=== PATIENT | female | born 1965 | race Caucasian/White ===

== ENCOUNTER → 2017-12-23 | Outpatient (CLI) | payer OTHER ==
[~2017-12-23] MED LIST: ATOM60CA PO; BUTA-56 PO; CYCL10TA6 PO; RIZA10TA18 PO; TAMO20TA9 PO; [UNRECOGNIZED DRUG - OTHER] PO; buspar PO; lexapro PO
--- NOTE | 2017-12-23 09:08 | DIAGNOSTIC IMAGING REPORT ---
ABDOMINAL ULTRASOUND, RIGHT UPPER QUADRANT HISTORY: Right upper quadrant pain.. COMPARISON: None. FINDINGS: Pancreas: The pancreas demonstrates a normal echotexture. Liver: Unremarkable. Gallbladder: No gallbladder wall thickening. No gallstones. CBD: 4 mm. Right kidney: No hydronephrosis. IMPRESSION: No significant abnormality identified within the right upper quadrant. Electronically signed by: Dakota Myers M.D. 12/23/2017 9:06 AM Dictated Date/Time: 12/23/2017 9:05 AM
== END | disposition home or self-care (01) ==
LOC: C.ULTR 08:31
PROVIDERS: ATTEND Internal Medicine Hematology & Oncology
DX: C50.912 Malignant neoplasm of unspecified site of left female breast (principal); R10.11 Right upper quadrant pain

== ENCOUNTER → 2018-06-30 | Outpatient (CLI) | payer OTHER ==
[2018-06-30 17:27] LABS: BASO % 0.2 %; BASO ABS # 0.01 K/uL (0-0.2); EOS % 3.2 %; EOS ABS # 0.14 K/uL (0-0.5); HEMATOCRIT 39.3 % (37-47); HEMOGLOBIN 13.7 g/dL (12.0-16.0); LYMPH % 40.3 %; LYMPH ABS # 1.77 K/uL (1.2-3.4); MEAN CELL VOLUME 94.5 fL (80-100); MEAN CORPUSCULAR HEMOGLOBIN 32.9 pg (25-34); MEAN CORPUSCULAR HGB CONC 34.9 g/dl (32-36); MEAN PLATELET VOLUME 9.6 fL (7.4-10.4); MONO % 9.6 %; MONO ABS # 0.42 K/uL (0.11-0.59); NEUT % 46.7 %; NEUT ABS # 2.05 K/uL (1.4-6.5); PLATELET COUNT 223 K/uL (130-400); RED CELL DISTRIBUTION WIDTH CV 12.5 % (11.5-14.5); RED CELL DISTRIBUTION WIDTH SD 42.8 fL (36.4-46.3); WHITE BLOOD COUNT 4.39 K/uL (4.8-10.8)
[2018-06-30 17:58] LABS: ALBUMIN 4.2 gm/dl (3.4-5.0); ALKALINE PHOSPHATASE 72 U/L (45-117); ALT/SGPT 31 U/L (12-78); AST/SGOT 23 U/L (15-37); BLOOD UREA NITROGEN 17 mg/dl (7-18); CALCIUM 9.1 mg/dl (8.5-10.1); CARBON DIOXIDE 25 mmol/L (21-32); CHOLESTEROL 223 mg/dl (0-200); CREATININE 0.97 mg/dl (0.60-1.20); GLUCOSE 99 mg/dl (70-99); LDL CHOLESTEROL CALCULATED 143 mg/dl; POTASSIUM 3.8 mmol/L (3.5-5.1); SODIUM 137 mmol/L (136-145); TOTAL PROTEIN 7.2 gm/dl (6.4-8.2)
[2018-07-03 14:31] LABS: CA 27.29** TC 20123E 35 U/ML (<38); CA15-3 BREAST ANTIGEN 5819 24 U/mL (<32)
== END | disposition home or self-care (01) ==
LOC: C.LABBFT 12:39
PROVIDERS: ATTEND Nurse Practitioner
DX: C50.912 Malignant neoplasm of unspecified site of left female breast (principal); E03.9 Hypothyroidism, unspecified; I10 Essential (primary) hypertension

== ENCOUNTER → 2018-07-20 | Outpatient (CLI) | payer OTHER ==
[2018-07-20 17:47] LABS: BLOOD UREA NITROGEN 17 mg/dl (7-18); CALCIUM 10.2 mg/dl (8.5-10.1); CARBON DIOXIDE 30 mmol/L (21-32); CREATININE 1.01 mg/dl (0.60-1.20); GLUCOSE 94 mg/dl (70-99); POTASSIUM 3.8 mmol/L (3.5-5.1); SODIUM 138 mmol/L (136-145)
== END | disposition home or self-care (01) ==
LOC: C.LABBFT 13:47
PROVIDERS: ATTEND Nurse Practitioner
DX: I10 Essential (primary) hypertension (principal); F41.9 Anxiety disorder, unspecified

== ENCOUNTER 2022-06-11 23:02 | Inpatient (IN) ==
[2022-06-11] MEDS ORDERED: NITROGLYCERIN SL 0.4 MG/TAB TAB SL STA (23:19)
--- NOTE | 2022-06-11 23:31 | Emergency Department Note ---
Impression & Plan Acute hyponatremia, Hypokalemia, Midsternal chest [facility] NAME: JENNIFER AGUILLON AGE: 56 SEX: F ARRIVES VIA: Ambulance INFORMANT: Patient ED PROVIDER(S): Mellisa Anders DO CHIEF COMPLAINT: Chest pain; nausea and vomiting PLAN: Disposition: Admit to the [facility] Condition: Guarded MEDICAL DECISION MAKING: This is a 56-year-old female patient who presents to the emergency department with nausea and vomiting earlier today and then suddenly developed substernal chest pain this evening. The patient had a normal-appearing EKG and negative troponin. However, she had a very low sodium and potassium as well as chloride. We began to replace her sodium and potassium. The patient has been vomiting since 1:00 and then developed chest pain 2 hours ago. The nausea and vomiting seems to be under control after receiving IV Zofran. [facility] and [facility] will evaluate for further management. Triage Nursing notes reviewed and agree with them. Prior medical records reviewed Vital Signs: reviewed and unremarkable Differential diagnosis: Pancreatitis, cholecystitis, electrolyte abnormality, hyperglycemia, hypoglycemia GERD, NSTEMI, STEMI ER treatment provided: SL nitro IV normal saline solution IV potassium IV Dilaudid x2 Diagnostics interpreted by me: ECG: Normal sinus rhythm at a rate of 87 with a first-degree AV block. There was no ST segment elevation or signs of ischemia. The QT was prolonged at 490 m s. There was no ectopy. Cardiac Monitoring: Normal sinus rhythm at 84 Laboratory studies: See below Imaging studies: As per my interpretation Chest x-ray: Narrow mediastinum; no acute pulmonary pathology or evidence of co nsolidation. CT chest with contrast-as per stat rad Minimal curvilinear atelectasis at the bases. No focal consolidation. No pleural effusion or pneumothorax. The thoracic aorta is normal in caliber without aneurysm or dissection. Cardiac chambers are unremarkable. No pericardial effusion. No significant mediastinal or hilar adenopathy. Incidental hiatal hernia. No acute osseous abnormality. Overlying postoperative changes in the breast tissue consistent with bilateral mastectomy with subsequent reconstruction. No significant overlying acute soft tissue abnormality. HPI: 56/F arrives for evaluation of chest pain. Patient was in her usual state of health throughout the morning. Around 1 PM this afternoon, the patient developed significant nausea and vomiting. Around 2 hours ago, the patient developed substernal chest discomfort. She thought that it was indigestion. The symptoms seem to worsen and she called EMS. They administered aspirin, Zofran and sublingual nitroglycerin. She has since developed a headache. ROS: See above HPI for pertinent positives & negatives. A total of 10 systems reviewed and were otherwise negative. 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 Pupils are equal, round, and reactive to light. Extraocular eye muscles are intact, and sclera are anicteric. Nose - moist nasal mucosa without discharge. Mouth - moist buccal mucosa. Oropharynx is nonerythematous and there is no tonsillar exudate or edema noted. Neck: Supple; no cervical lymphadenopathy or thyromegaly Heart: Regular rate and rhythm. There is a normal S1 and S2 with no murmurs, clicks, or gallops appreciated. Lungs: Clear to auscultation bilaterally with no wheezes, rales, or rhonchi. Abdomen: Soft, completely nontender, nondistended, with good bowel sounds. There are no palpable pulsatile masses or hepatosplenomegaly. There is no guarding, rigidity, or rebound noted. Extremities: No evidence of cyanosis, clubbing, or edema. There are easily palpable peripheral pulses. Skin: warm and dry with good turgor and no rashes. ED COURSE: Times/Reassessments: 2305: Patient was evaluated in room C9. A complete history and physical was performed. Laboratory studies were drawn as above. An order was placed for continuous cardiac monitoring. The patient was in a normal sinus rhythm. A twelve-lead EKG was obtained as described above. The patient was given a sublingual nitroglycerin. Patient did not have much relief of the chest discomfort. She was noted to be significantly low sodium and potassium. She was started on IV normal saline solution and a K rider. The patient was given a dose of IV Dilaudid for the chest discomfort. This did give her some relief. I reviewed all of the laboratory studies with the patient and her . She continued complaining of pain in the chest. She was given another dose of IV Dilaudid. I discussed the case with the [facility] and they will evaluate for further management. Mellisa Anders DO Past Med/Surg History Medical History (Updated 06/13/22 @ 16:34 by Mellisa Anders DO) Anxiety Brachial plexus injury, left Breast cancer Carpal tunnel syndrome, bilateral Cervical radiculopathy Depression Hypertension Hypothyroidism Intercostal neuropathy Migraine Post-mastectomy pain syndrome Surgical History H/O bilateral mastectomy H/O left knee surgery H/O: hysterectomy Hx of tonsillectomy Previous section Family History Mother Depression Cancer Hypertension Father Hypertension Hypotension Sister Anxiety Social History Smoking Status: Never smoker Hx Alcohol Use: Yes Alcohol type: wine Hx Substance Use: No Preferred Language: Hebrew Visual Impairment: No Limitations Hearing Ability: Normal Beliefs That Will Affect Care: None marital status: Current Living Situation: Spouse current occupational status: employed 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, 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 Feels Safe at Home: Yes Assistive Devices: None Allergies Allergies Allergy/AdvReac Type Severity Reaction Status Date / Time amoxicillin Allergy Mild back pain, Verified 06/12/22 01:51 nausea, diarrhea clindamycin Allergy hives Verified 06/12/22 01:51 lisinopril Allergy heart Verified 06/12/22 01:51 palpatations azithromycin AdvReac Intermediate vomiting Verified 06/12/22 01:51 Chloraprep Allergy Unknown Hives Uncoded 06/12/22 01:51 Home Meds Home Medications Medication Instructions Recorded Confirmed clonazepam 1 mg tablet (Klonopin) 1 mg PO BID PRN Anxiety 06/28/19 06/12/22 letrozole 2.5 mg tablet (Femara) 2.5 mg PO DAILY 06/28/19 06/12/22 [id number] 50 1 cap PO Q4H PRN Migraine Headache 07/24/19 06/12/22 mg-325 mg-40 mg capsule amlodipine 5 mg tablet 5 mg PO DAILY 08/09/19 06/12/22 rimegepant 75 mg disintegrating 75 mg PO ONCE PRN migraine headache 04/04/22 06/12/22 tablet (Nurtec ODT) vortioxetine 20 mg tablet 20 mg PO DAILY 04/04/22 06/12/22 (Trintellix) hydroxyzine pamoate 25 mg capsule 25 mg PO HS 04/15/22 06/12/22 nabumetone 750 mg tablet 750 mg PO BID 04/15/22 06/12/22 Previous Rx's Medication Instructions Recorded hydrochlorothiazide 25 mg tablet 25 mg PO DAILY #90 tabs 07/29/19 levothyroxine 150 mcg tablet 150 mcg PO DAILY #90 tabs 08/26/19 nebivolol 20 mg tablet (Bystolic) 20 mg PO DAILY #30 tabs 07/25/20 duloxetine 30 mg capsule,delayed 30 mg PO HS #90 caps 10/12/21 release (Cymbalta) acetaminophen 300 mg-codeine 30 mg 1 tab PO Q8H PRN pain #30 tabs 04/15/22 tablet oxcarbazepine 300 mg tablet 300 mg PO BID #60 tabs 04/17/22 duloxetine 60 mg capsule,delayed 60 mg PO QAM 30 days #30 caps 04/24/22 release (Cymbalta) Results & Data (ED) Vital Signs Vital Signs - 24 hr 06/11/22 23:07 06/11/22 23:20 06/11/22 23:26 Temperature 36.7 C Temperature Source Oral Oral Pulse Rate 83 Pulse Rate [Finger] Pulse Rhythm [Finger] Pulse Strength [Finger] Respiratory Rate 16 Respiratory Effort / Characteristics Non-Labored Respiratory Depth Normal Respiratory Pattern Regular Blood Pressure 139/86 Blood Pressure [Right Arm] Blood Pressure Mean 103 Blood Pressure Mean [Right Arm] Blood Pressure Position Lying Blood Pressure Position [Right Arm] Pulse Oximetry 97 Oxygen Delivery Method Room Air Room Air Sepsis Recent Fever Within 48 Hours No Sepsis New/Unexplained Change in Mental Status N/A Sepsis Action Taken by Nursing No Action Required 06/11/22 23:26 06/11/22 23:30 06/11/22 23:41 Temperature Temperature Source Pulse Rate 77 Pulse Rate [Finger] Pulse Rhythm [Finger] Pulse Strength [Finger] Respiratory Rate 12 Respiratory Effort / Characteristics Respiratory Depth Respiratory Pattern Blood Pressure 134/82 Blood Pressure [Right Arm] Blood Pressure Mean 99 Blood Pressure Mean [Right Arm] Blood Pressure Position Blood Pressure Position [Right Arm] Pulse Oximetry 94 97 Oxygen Delivery Method Room Air Sepsis Recent Fever Within 48 Hours Sepsis New/Unexplained Change in Mental Status Sepsis Action Taken by Nursing 06/11/22 23:41 06/12/22 00:00 06/12/22 01:20 Temperature Temperature Source Pulse Rate 86 Pulse Rate [Finger] 76 Pulse Rhythm [Finger] Regular Pulse Strength [Finger] Normal Respiratory Rate 17 20 Respiratory Effort / Characteristics Non-Labored Spontaneous Respiratory Depth Normal Respiratory Pattern Blood Pressure 137/80 Blood Pressure [Right Arm] 119/67 Blood Pressure Mean 99 Blood Pressure Mean [Right Arm] 84 Blood Pressure Position Blood Pressure Position [Right Arm] Lying Pulse Oximetry 94 97 Oxygen Delivery Method Room Air Sepsis Recent Fever Within 48 Hours Sepsis New/Unexplained Change in Mental Status Sepsis Action Taken by Nursing 06/12/22 00:30 06/12/22 00:30 06/12/22 01:00 Temperature Temperature Source Pulse Rate 81 72 Pulse Rate [Finger] Pulse Rhythm [Finger] Pulse Strength [Finger] Respiratory Rate 16 28 H Respiratory Effort / Characteristics Respiratory Depth Respiratory Pattern Blood Pressure 130/76 Blood Pressure [Right Arm] Blood Pressure Mean 94 Blood Pressure Mean [Right Arm] Blood Pressure Position Blood Pressure Position [Right Arm] Pulse Oximetry 98 92 Oxygen Delivery Method Sepsis Recent Fever Within 48 Hours Sepsis New/Unexplained Change in Mental Status Sepsis Action Taken by Nursing 06/12/22 01:00 06/12/22 01:34 06/12/22 03:00 Temperature Temperature Source Pulse Rate Pulse Rate [Finger] 62 Pulse Rhythm [Finger] Pulse Strength [Finger] Respiratory Rate 14 Respiratory Effort / Characteristics Non-Labored Respiratory Depth Normal Respiratory Pattern Regular Blood Pressure 119/67 Blood Pressure [Right Arm] 103/56 L Blood Pressure Mean 84 Blood Pressure Mean [Right Arm] 71 Blood Pressure Position Blood Pressure Position [Right Arm] Lying Pulse Oximetry 96 97 Oxygen Delivery Method Room Air Sepsis Recent Fever Within 48 Hours Sepsis New/Unexplained Change in Mental Status Sepsis Action Taken by Nursing 06/12/22 04:00 06/12/22 05:00 Temperature Temperature Source Pulse Rate Pulse Rate [Finger] 60 65 Pulse Rhythm [Finger] Pulse Strength [Finger] Respiratory Rate 10 L 14 Respiratory Effort / Characteristics Non-Labored Spontaneous Non-Labored Respiratory Depth Normal Normal Respiratory Pattern Regular Regular Blood Pressure Blood Pressure [Right Arm] 94/51 L 110/58 L Blood Pressure Mean Blood Pressure Mean [Right Arm] 65 75 Blood Pressure Position Blood Pressure Position [Right Arm] Left Lateral Left Lateral Pulse Oximetry 96 97 Oxygen Delivery Method Room Air Room Air Sepsis Recent Fever Within 48 Hours Sepsis New/Unexplained Change in Mental Status Sepsis Action Taken by Nursing Laboratory Data Result diagrams: 06/11/22 23:17 06/13/22 12:02 Lab Results 06/11/22 06/11/22 06/11/22 Range/Units 23:17 23:17 23:17 WBC 7.99 (4.8-10.8) K/ul RBC 4.56 (3.93-5.22) M/uL Hgb 13.8 (12.0-16.0) g/dl Hct 38.5 (34.1-44.9) % MCV 84.4 (80.0-100.0) fL MCH 30.3 (25.0-34.0) pg MCHC 35.8 (32.0-36.0) g/dL RDW Std Deviation 40.1 (36.4-46.3) fL RDW Coeff of Gonzalo 13.0 (11.5-14.5) % Plt Count 358 (130-400) K/uL MPV 8.5 L (9.4-12.3) fL Immature Gran % (Auto) 0.3 % Neut % (Auto) 47.0 % Lymph % (Auto) 37.8 % [place] % (Auto) 12.9 % Eos % (Auto) 1.4 % Baso % (Auto) 0.6 % Neut # (Auto) 3.76 (1.4-6.5) K/uL Lymph # (Auto) 3.02 (1.2-3.4) K/uL [place] # (Auto) 1.03 H (0.24-0.82) K/uL Eos # (Auto) 0.11 (0-0.50) K/uL Baso # (Auto) 0.05 (0-0.2) K/uL Immature Gran # (Auto) 0.02 (0.00-0.02) K/uL Sodium 119 L* (136-145) mmol/L Potassium 2.5 L* (3.5-5.1) mmol/L Chloride 81 L (98-107) mmol/L Carbon Dioxide 26 (21-32) mmol/L Anion Gap 12 H (3-11) BUN 12 (6-23) mg/dl Creatinine 0.61 (0.6-1.2) mg/dl Est Cr Clr Drug Dosing 105.8 ml/min Est GFR ( Amer) 118.3 ml/min Est GFR (Non-Af Amer) 102.1 ml/min BUN/Creatinine Ratio 19.7 (10-20) Glucose 125 H (70-99(Fasting)) mg/dl Osmolality 251 L (280-300) mOsm/kg Calcium 10.0 (8.5-10.1) mg/dl Total Bilirubin 1.3 H (0.2-1.0) mg/dl AST 30 (13-39) U/L ALT 22 (7-52) U/L Alkaline Phosphatase 101 (34-104) U/L Troponin I High Sens 3.9 (0-14) pg/ml Total Protein 7.7 (6.0-8.3) gm/dl Albumin 5.0 (3.4-5.0) gm/dl Globulin 2.7 (2.5-4.0) gm/dl Albumin/Globulin Ratio 1.9 (0.9-2) Lipase 9 L (11-82) U/L TSH (0.300-4.500) uIu/ml Urine Osmolality (500-800) mOsm/kg Ur Random Sodium mmol/L Urine Opiates Screen (Neg) Ur Methadone, Qual (Neg) Urine Barbiturates (Neg) Ur Phencyclidine (PCP) (Neg) U Amphetamin/Meth Scrn (Neg) MDMA (Ecstasy) Screen (Neg) U Benzodiazepines Scrn (Neg) Ur Cocaine Metabolite (Neg) U Marijuana (THC) Screen (Neg) SARS-CoV-2, RNA, NAAT (NEGATIVE) 06/11/22 06/12/22 06/12/22 Range/Units 23:17 01:14 01:36 WBC (4.8-10.8) K/ul RBC (3.93-5.22) M/uL Hgb (12.0-16.0) g/dl Hct (34.1-44.9) % MCV (80.0-100.0) fL MCH (25.0-34.0) pg MCHC (32.0-36.0) g/dL RDW Std Deviation (36.4-46.3) fL RDW Coeff of Gonzalo (11.5-14.5) % Plt Count (130-400) K/uL MPV (9.4-12.3) fL Immature Gran % (Auto) % Neut % (Auto) % Lymph % (Auto) % [place] % (Auto) % Eos % (Auto) % Baso % (Auto) % Neut # (Auto) (1.4-6.5) K/uL Lymph # (Auto) (1.2-3.4) K/uL [place] # (Auto) (0.24-0.82) K/uL Eos # (Auto) (0-0.50) K/uL Baso # (Auto) (0-0.2) K/uL Immature Gran # (Auto) (0.00-0.02) K/uL Sodium (136-145) mmol/L Potassium (3.5-5.1) mmol/L Chloride (98-107) mmol/L Carbon Dioxide (21-32) mmol/L Anion Gap (3-11) BUN (6-23) mg/dl Creatinine (0.6-1.2) mg/dl Est Cr Clr Drug Dosing ml/min Est GFR ( Amer) ml/min Est GFR (Non-Af Amer) ml/min BUN/Creatinine Ratio (10-20) Glucose (70-99(Fasting)) mg/dl Osmolality (280-300) mOsm/kg Calcium (8.5-10.1) mg/dl Total Bilirubin (0.2-1.0) mg/dl AST (13-39) U/L ALT (7-52) U/L Alkaline Phosphatase (34-104) U/L Troponin I High Sens (0-14) pg/ml Total Protein (6.0-8.3) gm/dl Albumin (3.4-5.0) gm/dl Globulin (2.5-4.0) gm/dl Albumin/Globulin Ratio (0.9-2) Lipase (11-82) U/L TSH 0.347 (0.300-4.500) uIu/ml Urine Osmolality 320 L (500-800) mOsm/kg Ur Random Sodium mmol/L Urine Opiates Screen (Neg) Ur Methadone, Qual (Neg) Urine Barbiturates (Neg) Ur Phencyclidine (PCP) (Neg) U Amphetamin/Meth Scrn (Neg) MDMA (Ecstasy) Screen (Neg) U Benzodiazepines Scrn (Neg) Ur Cocaine Metabolite (Neg) U Marijuana (THC) Screen (Neg) SARS-CoV-2, RNA, NAAT NEGATIVE (NEGATIVE) 06/12/22 06/12/22 Range/Units 01:36 01:36 WBC (4.8-10.8) K/ul RBC (3.93-5.22) M/uL Hgb (12.0-16.0) g/dl Hct (34.1-44.9) % MCV (80.0-100.0) fL MCH (25.0-34.0) pg MCHC (32.0-36.0) g/dL RDW Std Deviation (36.4-46.3) fL RDW Coeff of Gonzalo (11.5-14.5) % Plt Count (130-400) K/uL MPV (9.4-12.3) fL Immature Gran % (Auto) % Neut % (Auto) % Lymph % (Auto) % [place] % (Auto) % Eos % (Auto) % Baso % (Auto) % Neut # (Auto) (1.4-6.5) K/uL Lymph # (Auto) (1.2-3.4) K/uL [place] # (Auto) (0.24-0.82) K/uL Eos # (Auto) (0-0.50) K/uL Baso # (Auto) (0-0.2) K/uL Immature Gran # (Auto) (0.00-0.02) K/uL Sodium (136-145) mmol/L Potassium (3.5-5.1) mmol/L Chloride (98-107) mmol/L Carbon Dioxide (21-32) mmol/L Anion Gap (3-11) BUN (6-23) mg/dl Creatinine (0.6-1.2) mg/dl Est Cr Clr Drug Dosing ml/min Est GFR ( Amer) ml/min Est GFR (Non-Af Amer) ml/min BUN/Creatinine Ratio (10-20) Glucose (70-99(Fasting)) mg/dl Osmolality (280-300) mOsm/kg Calcium (8.5-10.1) mg/dl Total Bilirubin (0.2-1.0) mg/dl AST (13-39) U/L ALT (7-52) U/L Alkaline Phosphatase (34-104) U/L Troponin I High Sens (0-14) pg/ml Total Protein (6.0-8.3) gm/dl Albumin (3.4-5.0) gm/dl Globulin (2.5-4.0) gm/dl Albumin/Globulin Ratio (0.9-2) Lipase (11-82) U/L TSH (0.300-4.500) uIu/ml Urine Osmolality (500-800) mOsm/kg Ur Random Sodium 100 mmol/L Urine Opiates Screen Pos H (Neg) Ur Methadone, Qual Neg (Neg) Urine Barbiturates Neg (Neg) Ur Phencyclidine (PCP) Neg (Neg) U Amphetamin/Meth Scrn Neg (Neg) MDMA (Ecstasy) Screen Neg (Neg) U Benzodiazepines Scrn Neg (Neg) Ur Cocaine Metabolite Neg (Neg) U Marijuana (THC) Screen Neg (Neg) SARS-CoV-2, RNA, NAAT (NEGATIVE) Administered Medications Amlodipine Besylate (Amlodipine Besylate 5 Mg Tab) 5 mg PO DAILY ROXANNE Stop: 07/12/22 08:59 Last Admin: 06/13/22 08:31 Dose: 5 mg Documented By: Admin: 06/12/22 08:08 Dose: 5 mg Documented By: DELIA Hydroxyzine HCl (Hydroxyzine Hcl 25 Mg Tab) 25 mg PO HS RXOANNE Stop: 07/12/22 20:59 Last Admin: 06/12/22 20:42 Dose: 25 mg Documented By: DELIA Letrozole (Letrozole 2.5 Mg Tab) 2.5 mg PO DAILY ROXANNE Stop: 07/12/22 08:59 Last Admin: 06/13/22 08:31 Dose: 2.5 mg Documented By: MILLIE Co-signed By: MIGNON Admin: 06/12/22 08:08 Dose: 2.5 mg Documented By: DELIA Co-signed By: TYLER Levothyroxine Sodium (Levothyroxine Sodium 150 Mcg Tablet) 150 mcg PO DAILY ROXANNE Stop: 07/12/22 06:29 Last Admin: 06/13/22 05:12 Dose: 150 mcg Documented By: Admin: 06/12/22 08:08 Dose: 150 mcg Documented By: DELIA Miscellaneous (Order Awaiting Action: Nebivolol [Bystolic] 20 Mg Tablet) 1 each N/A QS ROXANNE Stop: 07/12/22 07:59 Last Admin: 06/13/22 08:17 Dose: Not Given Documented By: Admin: 06/13/22 00:00 Dose: Not Given Documented By: Admin: 06/12/22 15:51 Dose: Not Given Documented By: Admin: 06/12/22 08:08 Dose: Not Given Documented By: DELIA Ondansetron HCl (Ondansetron Inj 2 Mg/Ml 2 Ml Vial) 4 mg IV Q6H PRN PRN Reason: Nausea Stop: 07/12/22 06:22 Last Admin: 06/12/22 07:51 Dose: 4 mg Documented By: DELIA Discontinued Medications Fentanyl Citrate (Fentanyl Citrate 100 Mcg/2 Ml Vial) 50 mcg IV NOW STA Stop: 06/11/22 23:45 Last Admin: 06/11/22 23:59 Dose: 50 mcg Documented By: BOYD Hydromorphone HCl (Hydromorphone Inj 0.5 Mg/0.5 Ml Syr) 0.5 mg IV NOW STA Stop: 06/12/22 00:24 Last Admin: 06/12/22 00:28 Dose: 0.5 mg Documented By: BOYD Hydromorphone HCl (Hydromorphone Inj 0.5 Mg/0.5 Ml Syr) 0.5 mg IV NOW STA Stop: 06/12/22 00:59 Last Admin: 06/12/22 01:19 Dose: 0.5 mg Documented By: CATHY Sodium Chloride (Nss 1000ml) 1,000 mls @ 999 mls/hr IV .Q1H1M ONE Stop: 06/12/22 01:13 Last Infusion: 06/12/22 02:00 Dose: 0 mls/hr Documented By: Admin: 06/12/22 00:23 Dose: 999 mls/hr Documented By: BOYD Potassium Chloride (K Zach / Wtr) 10 meq in 100 mls @ 100 mls/hr IV ONE ONE; Protocol Stop: 06/12/22 01:12 Last Infusion: 06/12/22 02:00 Dose: 0 mls/hr Documented By: Admin: 06/12/22 00:48 Dose: 100 mls/hr Documented By: BOYD Prochlorperazine (Compazine) 1 mls @ 1 mls/min IV ONE ONE Stop: 06/12/22 00:16 Last Admin: 06/12/22 00:23 Dose: 1 mls/min Documented By: BOYD Sodium Chloride (Hypertonic Saline 3%) 100 mls @ 600 mls/hr IV .Q10M ONE Stop: 06/12/22 01:38 Last Infusion: 06/12/22 02:01 Dose: 0 mls/hr Documented By: BOYD Co-signed By: GE Admin: 06/12/22 01:51 Dose: 600 mls/hr Documented By: BOYD Co-signed By: CATHY Sodium Chloride (Hypertonic Saline 3%) 100 mls @ 600 mls/hr IV .Q10M ONE Stop: 06/12/22 06:10 Last Infusion: 06/12/22 06:26 Dose: 0 mls/hr Documented By: BOYD Co-signed By: EMERY Admin: 06/12/22 06:16 Dose: 600 mls/hr Documented By: BOYD Co-signed By: EMERY Desmopressin Acetate 2 mcg/ (Sodium Chloride) 50.5 mls @ 100 mls/hr IV NOW STA Stop: 06/12/22 13:08 Last Infusion: 06/12/22 14:12 Dose: 0 mls/hr Documented By: Admin: 06/12/22 13:41 Dose: 100 mls/hr Documented By: DELIA Desmopressin Acetate 4 mcg/ (Sodium Chloride) 51 mls @ 100 mls/hr IV NOW STA Stop: 06/12/22 17:43 Last Infusion: 06/12/22 18:15 Dose: 0 mls/hr Documented By: Admin: 06/12/22 17:44 Dose: 100 mls/hr Documented By: DELIA Desmopressin Acetate 4 mcg/ (Syringe) 10 mls @ 5 mls/min IV NOW STA Stop: 06/12/22 22:46 Last Admin: 06/12/22 23:22 Dose: 5 mls/min Documented By: ESCOBAR Desmopressin Acetate 2 mcg/ (Syringe) 10 mls @ 5 mls/min IV NOW STA Stop: 06/13/22 05:28 Last Admin: 06/13/22 05:40 Dose: 5 mls/min Documented By: ESCOBAR Ioversol (Optiray 320 100ml) 100 ml IV ONCE ONE Stop: 06/12/22 00:54 Last Admin: 06/12/22 00:54 Dose: 93 ml Documented By: LYUDMILA Nitroglycerin (Nitroglycerin Sl 0.4 Mg/Tab Tab) 0.4 mg SL NOW STA Stop: 06/11/22 23:20 Last Admin: 06/11/22 23:31 Dose: 0.4 mg Documented By: BOYD Ondansetron HCl (Ondansetron Inj 2 Mg/Ml 2 Ml Vial) 4 mg IV NOW STA Stop: 06/11/22 23:35 Last Admin: 06/11/22 23:41 Dose: 4 mg Documented By: BOYD Potassium Chloride (Potassium Chloride Crtab 20 Meq Tabcr) 60 meq PO NOW STA Stop: 06/12/22 01:32 Last Admin: 06/12/22 01:50 Dose: 60 meq Documented By: BOYD Discharge Plan Visit Data Chief Complaint: Chest Pain ED Provider: Mellisa Anders Discharge Problem: Acute hyponatremia, Hypokalemia, Midsternal chest pain Patient Disposition: Admitted As Inpatient Discharge Instructions Interventions: ED Discharge Assessment Last Done: 06/12/22 06:19
[2022-06-11 23:33] LABS: Basophils # (auto) 0.05 K/uL (0-0.2); Basophils % (auto) 0.6 %; Eosinophils # (auto) 0.11 K/uL (0-0.50); Eosinophils % (auto) 1.4 %; Hematocrit (blood only) 38.5 % (34.1-44.9); Hemoglobin 13.8 g/dl (12.0-16.0); Immature Granulocytes # (auto) 0.02 K/uL (0.00-0.02); Immature Granulocytes % (auto) 0.3 %; Lymphocytes # (auto) 3.02 K/uL (1.2-3.4); Lymphocytes % (auto) 37.8 %; Mean Corpuscular Hemoglobin 30.3 pg (25.0-34.0); Mean Corpuscular Hgb Conc 35.8 g/dL (32.0-36.0); Mean Corpuscular Volume 84.4 fL (80.0-100.0); Mean Platelet Volume 8.5 fL (9.4-12.3); Monocytes # (auto) 1.03 K/uL (0.24-0.82); Monocytes % (auto) 12.9 %; Neutrophils # (auto) 3.76 K/uL (1.4-6.5); Platelet Count 358 K/uL (130-400); RDW Standard Deviation 40.1 fL (36.4-46.3); Red Blood Count 4.56 M/uL (3.93-5.22); White Blood Count 7.99 K/ul (4.8-10.8)
[2022-06-11] MEDS ORDERED: ONDANSETRON INJ 2 MG/ML 2 ML VIAL IV STA (23:34)
[2022-06-11] MEDS ORDERED: fentaNYL citrate 100 MCG/2 ML VIAL IV STA (23:44)
[2022-06-12 00:07] LABS: Albumin Globulin Ratio 1.9 (0.9-2); BUN Creatinine Ratio 19.7 (10-20); Bilirubin,Total 1.3 mg/dl (0.2-1.0); Creatinine Clr Calc Pharmacy 105.8 ml/min; Est GFR (African American) 118.3 ml/min; Est GFR (Non-African American) 102.1 ml/min; Globulin 2.7 gm/dl (2.5-4.0); Potassium 2.5 mmol/L (3.5-5.1); Total Protein 7.7 gm/dl (6.0-8.3); Troponin I High Sensitivity 3.9 pg/ml (0-14)
[2022-06-12] MEDS ORDERED: POTASSIUM CHLORIDE / WTR 10 MEQ/100 ML PLCT IV ONE (00:13)
[2022-06-12] MEDS ORDERED: SODIUM CHLORIDE 0.9% 1000ML 1,000 ML IV ONE (00:13)
[2022-06-12] MEDS ORDERED: PROCHLORPERAZINE 1 ML IV ONE (00:15)
[2022-06-12] MEDS ORDERED: HYDROmorphone INJ 0.5 MG/0.5 ML SYR IV STA ×2 (00:23→00:58)
[2022-06-12] MEDS ORDERED: OPTIRAY 320 100ml IV ONE (00:53)
[2022-06-12] MEDS ORDERED: SODIUM CHLORIDE 3 % 100 ML IV ONE ×2 (01:29→06:01)
[2022-06-12] MEDS ORDERED: POTASSIUM CHLORIDE CRTAB 20 MEQ TABCR PO STA (01:31)
--- NOTE | 2022-06-12 01:57 | History & Physical Report ---
Date of Service June 12, 2022 Assessment & Plan (1) Hyponatremia: Plan: Tracey Fajardo is a 56yo female with PMHx significant for depression/anxiety, h/o breast cancer (s/p bilateral mastectomy), post-mastectomy pain syndrome, migraines, HTN, and hypothyroidism who presented to [facility] ED on 06/12 for headaches, vomiting and resultant burning chest pain. Hyponatremic with Na 119 in ED. Severe Hyponatremia Daily headaches x3 weeks followed by acute onset vomiting earlier in the evening and "brain fog" with Na 119 (previously normal last year), suspicious for acute development of severe hyponatremia with mild symptoms. Urine sodium and osmo lality are both elevated, suggesting SIADH as etiology. Although patient is on several psychiatric medications that can cause SIADH, I suspect that Oxcarbazepine, which was started 6 weeks ago, is most likely culprit. - UDS positive for opiates (after Dilaudid/Fentanyl were given in ED) - s/p NSS 1L bolus - will give hypertonic saline 100cc bolus now - fluid restriction 1L - trend BMP Q4H - goal increase in Na 6-8mEq in next 24 hours - will hold all home medications that can cause SIADH for now: Oxcarbazepine, Duloxetine, HCTZ, Nabumetone, Vortioxetine - consulted Nephrology - appreciate recs - maintain seizure precautions Hypokalemia/Hypochloremia K 2.5, Cl 81. Suspect these are acutely low due to recent vomiting. - repleted with KCl 60mEq - trend BMP Q4H as stated above Chest Pain Burning chest pain following vomiting - suspect pain is GI in nature 2/2 to vomiting. hsTroponin negative x2 and EKG witout ST/T changes. Chest pain was unchanged with SL Nitro and resolved with Dilaudid/Fentanyl. - CXR without free air and CT chest unremarkable - ordered Tylenol PRN for further pain Post-mastectomy pain syndrome: hold Oxcarbazepine and Nabumetone as stated above. May need to adjust home pain med regimen - per primary team/PCP Depression/Anxiety: hold home Duloxetine and Vorioxetine as stated above. Continue home Clonazepam PRN and Hydroxyzine HTN: hold home HCTZ as stated above. Continue home Amlodipine and Nebivolol Hypothyroidism: Last TSH .319 in 2019. Check TSH. Continue home Synthroid Breast cancer, s/p bilateral mastectomy: continue home Letrozole FEN/GI: regular diet with 1L fluid restriction DVT Prophylaxis: SCDs Code Status: full code Disposition: PCU (2) Hypokalemia: (3) Chest pain: (4) Depression: (5) Anxiety: (6) Post-mastectomy pain syndrome: (7) Migraine: (8) Hypertension: (9) Hypothyroidism: (10) H/O bilateral mastectomy: (11) Breast cancer: History of Present Illness Chief Complaint: chest pain Primary Care Provider: Radha Toro DO Tracey Fajardo is a 56yo female with PMHx significant for depression/anxiety, h/o breast cancer (s/p bilateral mastectomy), post-mastectomy pain syndrome, migraines, HTN, and hypothyroidism who presented to [facility] ED on 06/12 for headaches, vomiting and resultant burning chest pain. Patient reports that she was started on Trileptal for post-mastectomy pain syndrome ~6 weeks ago. Starting ~3 weeks ago the patient has had daily headaches which seemed to be slightly different in quality than her usual migraines. She then reports sudden onset of NB/NB vomiting in the early afternoon yesterday - 1 episode. She then had some residual nausea and decreased appetite, and proceeded to vomit 5 more times in the evening and once on arrival in our ED. She reports that she started to have a burning substernal chest pain that started with the vomiting which also prompted her to come to the ED. Patient denies any other new medications. She normally has adequate fluid intake and denies polydipsia. She, and her who is in the ED with her, deny confusion or altered mental status prior to arrival in the ED, although the patient's does say that she appears to be "thinking a little slower" since arrival. Patient denies dizziness/lightheadedness or imbalance. She denies current headache. Patient drinks two glasses of wine per day for "years" but denies beer or other alcohol use. Denies smoking or other drug use. Denies use of supplements beyond her prescribed medications. In the ED the patient was afebrile and hemodynamically stable on room air. Labs significant for Na 119, K 2.5, Cl 81. CXR unremarkable, in particular no evidence of free air. Chest CT done and results pending. COVID-19 negative. Patient received NSS 1L bolus, KCl 10mEq IV x1. Received Dilaudid 1mg IV total and Fentanyl 50mcg IV for chest pain - it is now nearly resolved. Received Nitro SL as well which did not improve pain. Received Compazine and Zofran for nausea - which is now resolved. Allergies Allergy/AdvReac Type Severity Reaction Status Date / Time amoxicillin Allergy Mild back pain, Verified 06/12/22 01:51 nausea, diarrhea clindamycin Allergy hives Verified 06/12/22 01:51 lisinopril Allergy heart Verified 06/12/22 01:51 palpatations azithromycin AdvReac Intermediate vomiting Verified 06/12/22 01:51 Chloraprep Allergy Unknown Hives Uncoded 06/12/22 01:51 Home Medications Medication Instructions Recorded Confirmed Type clonazepam 1 mg tablet (Klonopin) 1 mg PO BID PRN Anxiety 06/28/19 06/12/22 History letrozole 2.5 mg tablet (Femara) 2.5 mg PO DAILY 06/28/19 06/12/22 History nmudmaencp-vogaeei-reswuybx 50 1 cap PO Q4H PRN Migraine Headache 07/24/19 06/12/22 History mg-325 mg-40 mg capsule hydrochlorothiazide 25 mg tablet 25 mg PO DAILY #90 tabs 07/29/19 06/12/22 Rx amlodipine 5 mg tablet 5 mg PO DAILY 08/09/19 06/12/22 History levothyroxine 150 mcg tablet 150 mcg PO DAILY #90 tabs 08/26/19 06/12/22 Rx nebivolol 20 mg tablet (Bystolic) 20 mg PO DAILY #30 tabs 07/25/20 06/12/22 Rx duloxetine 30 mg capsule,delayed 30 mg PO HS #90 caps 10/12/21 06/12/22 Rx release (Cymbalta) rimegepant 75 mg disintegrating 75 mg PO ONCE PRN migraine headache 04/04/22 06/12/22 History tablet (Nurtec ODT) vortioxetine 20 mg tablet 20 mg PO DAILY 04/04/22 06/12/22 History (Trintellix) acetaminophen 300 mg-codeine 30 mg 1 tab PO Q8H PRN pain #30 tabs 04/15/22 06/12/22 Rx tablet hydroxyzine pamoate 25 mg capsule 25 mg PO HS 04/15/22 06/12/22 History nabumetone 750 mg tablet 750 mg PO BID 04/15/22 06/12/22 History oxcarbazepine 300 mg tablet 300 mg PO BID #60 tabs 04/17/22 06/12/22 Rx duloxetine 60 mg capsule,delayed 60 mg PO QAM 30 days #30 caps 04/24/22 06/12/22 Rx release (Cymbalta) Past Med/Surg History Medical History (Updated 06/12/22 @ 01:58 by Brandon Santoyo MD) Anxiety Brachial plexus injury, left Breast cancer Carpal tunnel syndrome, bilateral Cervical radiculopathy Depression Hypertension Hypothyroidism Intercostal neuropathy Migraine Post-mastectomy pain syndrome Surgical History H/O bilateral mastectomy H/O left knee surgery H/O: hysterectomy Hx of tonsillectomy Previous section Family History Mother Depression Cancer Hypertension Father Hypertension Hypotension Sister Anxiety Social History Smoking Status: Never smoker Hx Alcohol Use: Yes (1-2 glasses per day) Alcohol type: wine Hx Substance Use: Yes (medical marijuana- this does help) Preferred Language: Guatemalan Visual Impairment: No Limitations Hearing Ability: Normal Beliefs That Will Affect Care: None marital status: Current Living Situation: Spouse current occupational status: employed 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 NAD. Cooperative. HEENT: Atraumatic, normocephalic. Pulm: CTAB A&P. -wheezes, -rales, -rhonchi. Symmetrical chest rise. No increase work of breathing. No respiratory distress. Cardiac: RRR, -mrg. Radial pulses intact and symmetrical. No LE edema. Abdominal: soft, non-tender, non-distended, BS x 4 Skin: warm, dry, no rash Results & Data Results & Data ([facility]) Vital Signs (Past 12 Hours) Vital Signs Temp Pulse Pulse Resp BP BP Pulse Ox 06/12/22 01:20 76 20 119/67 97 06/12/22 00:00 137/80 06/11/22 23:41 86 17 134/82 94 06/11/22 23:30 77 12 97 06/11/22 23:26 94 06/11/22 23:20 36.7 C 06/11/22 23:07 83 16 139/86 97 Code Status & VTE Plan VTE Prophylaxis Plan VTE Prophylaxis will be ordered: Yes Supervising Physician Co-Signing Physician Notes Attending addendum: I have physically seen this patient, have supervised the medical residents activities, and agree with the H&P unless as otherwise noted. Assessment and Plan: Severe acute hyponatremia- Sodium 119 Serum osmolality 257 Urine osmolality 320 Consistent with SIADH Fluid restriction 1000 cc Sodium chloride 1 g p.o. 3 times daily Receiving small volume of hypertonic saline Holding potential medications that could cause SIADH: Oxcarbazepine, duloxetine, HCTZ, nabumetone and Vortioxetine BMP and magnesium levels every 4 hours And it telemetry with seizure precautions Hypokalemia- Potassium 2.5 Give Klor-Con 60 mEq p.o. Recheck laboratories in a.m., address again at that point Remaining orders and notations as noted Resident Activity Tracking Resident Involvement: Resident Care Provided Care Provided: Adult Hospital Medicine
[2022-06-12 05:41] LABS: Amphetamines+Metham, Urine Neg (Neg); Barbiturates, Urine Neg (Neg); Benzodiazepine, Urine Neg (Neg); Cocaine, Urine Neg (Neg); MDMA (Ecstacy), Urine Neg (Neg); Methadone, Urine Neg (Neg); Opiate, Urine Pos (Neg); Phencyclidine, Urine Neg (Neg)
[2022-06-12 05:56] LABS: Calcium 8.5 mg/dl (8.5-10.1); Creatinine Clr Calc Pharmacy 129.1 ml/min; Est GFR (African American) 126.3 ml/min; Potassium 3.4 mmol/L (3.5-5.1)
--- NOTE | 2022-06-12 06:06 | Billing Data ---
Date of Service June 12, 2022 Coding Level of Care Code 49353 Initial Inpt Care Lvl 3
[2022-06-12] MEDS ORDERED: ONDANSETRON INJ 2 MG/ML 2 ML VIAL IV PRN (06:23)
[2022-06-12] MEDS ORDERED: ACETAMINOPHEN 325 MG TAB PO PRN (06:23)
[2022-06-12] MEDS ORDERED: clonazePAM 1 MG TAB PO PRN (06:23)
[2022-06-12 07:34] LABS: BUN Creatinine Ratio 12.5 (10-20); Calcium 8.9 mg/dl (8.5-10.1); Creatinine Clr Calc Pharmacy 112.4 ml/min; Est GFR (African American) 121.7 ml/min; Potassium 3.8 mmol/L (3.5-5.1)
[2022-06-12] MEDS: LEVOTHYROXINE SODIUM 150 MCG TABLET PO SCH (08:08)
[2022-06-12] MEDS: LETROZOLE 2.5 MG TAB PO SCH (08:08)
[2022-06-12] MEDS: amLODIPine BESYLATE 5 MG TAB PO SCH (08:08)
--- NOTE | 2022-06-12 08:12 | XRay Report ---
XR chest 1V portable CLINICAL HISTORY: Chest Pain. COMPARISON STUDY: 08/08/2020 TECHNIQUE: 1 view of the chest FINDINGS: Single frontal view of the chest demonstrates the cardiomediastinal silhouette to be within normal li mits. The lungs are clear of alveolar opacities. There is no evidence for pleural effusion. There is no evidence for vascular congestion. There is no acute osseous pathology. IMPRESSION: 1. No acute cardiopulmonary disease. ACT 112: Negative or not required by law. Electronically signed by: Markel Beyer M.D. 06/12/2022 8:10 AM
--- NOTE | 2022-06-12 08:14 | CT Scan Report ---
CT chest diagnostic w con CLINICAL HISTORY: substernal chest pain TECHNIQUE: Multidetector row helical CT of the chest was performed with intravenous contrast. Coronal and sagittal reformations were obtained. Automated dose lowering techniques and/or adjustment accord ing to patient size were utilized for this exam. CT DOSE: 203.39 mGy.cm Comparison: Chest radiograph 06/11/2022 FINDINGS: Lungs and pleura: Atelectasis versus scarring is seen in the dependent portions of the lungs. Heart and pericardium: Heart size is normal. No pericardial effusion. Vessels: Unremarkable. Mediastinum and kady: Unremarkable. Chest wall and lower neck: Surgical clips are seen in the bilateral chest wall. Abdomen: Unremarkable. Bones: Degenerative changes in the thoracic spine. IMPRESSION: Unremarkable evaluation of the chest. ACT 112: Negative or not required by law. Electronically signed by: Jose Elias Reagan M.D. 06/12/2022 8:12 AM
--- NOTE | 2022-06-12 08:45 | Nephrology Consultation ---
Date of Consultation June 12, 2022 Assessment & Plan (1) Hyponatremia: * Hypoosmolar hyponatremia. Calculated serum osmolality 248. No osmolar gap. Uosm elevated due to ADH release associated w/ recurrent emesis and dehydration in the setting of thiazide diuretic and SSRI therapy. Serum sodium is correcting at an appropriate rate following 200 cc 3% NaCl and KCl repletion * Await 11 am lab results * Recommend reducing testing to q 6 hrs (2) Hypokalemia: * Corrected (3) Hypertension: * BP relatively low * Continue to hold thiazide diuretic History of Present Illness Reason for Consultation: Hyponatremia Attending Physician: Kristen Hoyt DO History of Present Illness Mrs. Fajardo is a 56 year old white female who is seen at the request of [facility] Hospitalist Service for evaluation of hyponatremia. Medical records in the EMR were reviewed today and are summarized as follows: Mrs. Fajardo has no prior h/o renal, liver or cardiac dysfunction. Her medical history is significant for HTN managed w/ a thiazide diuretic, hypothyroidism managed w/ levothyroxine, depression treated w/ SSRI therapy and breast cancer s/p bilateral mastectomy. Mrs. Fajardo presented to the EMD last evening for evaluation of migraine MAGAÑA and recurrent N&V. Serum sodium was 119 mmol/L, K 2.5mmol/L. She was given 100 cc 3% NaCl x2, 60 mEq KCl and placed on a 1 L/day oral fluid restriction. Uosm was found to be elevated. Thiazide diuretic and SSRI have been held. TSH remains acceptable. Serum sodium has risen 3 mEq over the last 7 hours and patient reports that her MAGAÑA and nausea are mildly improved. Allergies Allergy/AdvReac Type Severity Reaction Status Date / Time amoxicillin Allergy Mild back pain, Verified 06/12/22 01:51 nausea, diarrhea clindamycin Allergy hives Verified 06/12/22 01:51 lisinopril Allergy heart Verified 06/12/22 01:51 palpatations azithromycin AdvReac Intermediate vomiting Verified 06/12/22 01:51 Chloraprep Allergy Unknown Hives Uncoded 06/12/22 01:51 Home Medications Medication Instructions Recorded Confirmed Type clonazepam 1 mg tablet (Klonopin) 1 mg PO BID PRN Anxiety 06/28/19 06/12/22 History letrozole 2.5 mg tablet (Femara) 2.5 mg PO DAILY 06/28/19 06/12/22 History hovipjgcyn-fnuugja-dizsvhqf 50 1 cap PO Q4H PRN Migraine Headache 07/24/19 06/12/22 History mg-325 mg-40 mg capsule hydrochlorothiazide 25 mg tablet 25 mg PO DAILY #90 tabs 07/29/19 06/12/22 Rx amlodipine 5 mg tablet 5 mg PO DAILY 08/09/19 06/12/22 History levothyroxine 150 mcg tablet 150 mcg PO DAILY #90 tabs 08/26/19 06/12/22 Rx nebivolol 20 mg tablet (Bystolic) 20 mg PO DAILY #30 tabs 07/25/20 06/12/22 Rx duloxetine 30 mg capsule,delayed 30 mg PO HS #90 caps 10/12/21 06/12/22 Rx release (Cymbalta) rimegepant 75 mg disintegrating 75 mg PO ONCE PRN migraine headache 04/04/22 06/12/22 History tablet (Nurtec ODT) vortioxetine 20 mg tablet 20 mg PO DAILY 04/04/22 06/12/22 History (Trintellix) acetaminophen 300 mg-codeine 30 mg 1 tab PO Q8H PRN pain #30 tabs 04/15/22 06/12/22 Rx tablet hydroxyzine pamoate 25 mg capsule 25 mg PO HS 04/15/22 06/12/22 History nabumetone 750 mg tablet 750 mg PO BID 04/15/22 06/12/22 History oxcarbazepine 300 mg tablet 300 mg PO BID #60 tabs 04/17/22 06/12/22 Rx duloxetine 60 mg capsule,delayed 60 mg PO QAM 30 days #30 caps 04/24/22 06/12/22 Rx release (Cymbalta) Patient History Medical History Anxiety Brachial plexus injury, left Breast cancer Carpal tunnel syndrome, bilateral Cervical radiculopathy Depression Hypertension Hypothyroidism Intercostal neuropathy Migraine Post-mastectomy pain syndrome Surgical History H/O bilateral mastectomy H/O left knee surgery H/O: hysterectomy Hx of tonsillectomy Previous section Family History Mother Depression Cancer Hypertension Father Hypertension Hypotension Sister Anxiety Social History Smoking Status: Never smoker Hx Alcohol Use: Yes Alcohol type: wine Hx Substance Use: No Preferred Language: Syriac Visual Impairment: No Limitations Hearing Ability: Normal Beliefs That Will Affect Care: None marital status: Current Living Situation: Spouse current occupational status: employed 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, 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 Feels Safe at Home: Yes Assistive Devices: Glasses Review of Systems Eyes: no problem reported Ear, Nose, Mouth, Throat: no problem reported Respiratory: no dyspnea Cardiovascular: no chest pain Gastrointestinal: + nausea; no vomiting Genitourinary: no dysuria Neurologic: + headache(s) Physical Exam Constitutional: no acute distress Eyes: PERRL, conjunctivae normal, anicteric sclerae ENMT: external ear and nose normal, oropharynx normal Neck: trachea midline, no thyromegaly Respiratory: normal respiratory effort, lungs clear to auscultation Cardiovascular: RRR, no murmur, no edema Gastrointestinal (Abdomen): normal bowel sounds, soft, nontender, no hepatosplenomegaly Skin: no rashes, warm and dry Neurologic: awake; not confused Results & Data ([facility]) Vital Signs (Past 12 Hours) Vital Signs Temp Pulse Pulse Resp BP BP Pulse Ox 06/12/22 08:19 65 06/12/22 06:57 37.1 C 63 16 116/69 95 06/12/22 06:21 61 17 99/57 L 95 06/12/22 05:00 65 14 110/58 L 97 06/12/22 04:00 60 10 L 94/51 L 96 06/12/22 03:00 62 14 103/56 L 97 06/12/22 01:34 96 06/12/22 01:00 119/67 06/12/22 01:00 72 28 H 92 06/12/22 00:30 130/76 06/12/22 00:30 81 16 98 06/12/22 01:20 76 20 119/67 97 06/12/22 00:00 137/80 06/11/22 23:41 86 17 94 06/11/22 23:41 134/82 06/11/22 23:30 77 12 97 06/11/22 23:26 94 06/11/22 23:26 06/11/22 23:20 36.7 C 06/11/22 23:07 83 16 139/86 97 O2 Del Method 06/12/22 08:19 06/12/22 06:57 Room Air 06/12/22 06:21 Room Air 06/12/22 05:00 Room Air 06/12/22 04:00 Room Air 06/12/22 03:00 Room Air 06/12/22 01:34 06/12/22 01:00 06/12/22 01:00 06/12/22 00:30 06/12/22 00:30 06/12/22 01:20 Room Air 06/12/22 00:00 06/11/22 23:41 06/11/22 23:41 06/11/22 23:30 06/11/22 23:26 Room Air 06/11/22 23:26 Room Air 06/11/22 23:20 06/11/22 23:07 Room Air Laboratory Results Laboratory Tests 06/11/22 06/11/22 06/11/22 23:17 23:17 23:17 WBC 7.99 Hgb 13.8 Hct 38.5 Plt Count 358 Sodium Potassium Chloride Carbon Dioxide BUN Creatinine Est GFR (Non-Af Amer) Glucose Osmolality 251 L Calcium Total Bilirubin 1.3 H AST 30 ALT 22 Alkaline Phosphatase 101 Albumin 5.0 TSH 06/11/22 06/12/22 23:17 06:56 WBC Hgb Hct Plt Count Sodium 122 L Potassium 3.8 Chloride 89 L Carbon Dioxide 28 BUN 7 Creatinine 0.56 L Est GFR (Non-Af Amer) 105.0 Glucose 117 H Osmolality Calcium 8.9 Total Bilirubin AST ALT Alkaline Phosphatase Albumin TSH 0.347 Laboratory Tests 06/12/22 01:36 Urine Osmolality 320 L PG Care Time/CCT Total # of Minutes Spent Total Time Spent with Patient: Total time spent is greater than 50% in coordination of care (as documented) at patient's floor/unit and/or counseling patient: Coding Level of Care Code 43239 Inpt Consult Level 5 Diagnoses Hyponatremia E87.1 Hypokalemia E87.6 Hypertension I10
--- NOTE | 2022-06-12 09:13 | Hospitalist Progress Note ---
Date of Service June 12, 2022 Assessment & Plan (1) Hyponatremia: Plan: Tracey Fajardo is a 56yo female with PMHx significant for depression/anxiety, h/o breast cancer (s/p bilateral mastectomy), post-mastectomy pain syndrome, migraines, HTN, and hypothyroidism who presented to [facility] ED on 06/12 for headaches, vomiting, and resultant burning chest pain. Hyponatremic with Na 119 in ED. Severe Hyponatremia Daily headaches x3 weeks followed by acute onset vomiting earlier in the evening and "brain fog" with Na 119 (previously normal last year), suspicious for acute development of severe hyponatremia with mild symptoms. Urine sodium and osm olality are both elevated, suggesting SIADH as etiology. Although patient is on several psychiatric medications that can cause SIADH, I suspect that Oxcarbazepine, which was started 6 weeks ago, is most likely culprit, however, its possible thiazide and SSRI may be contributing as well. - UDS positive for opiates (after Dilaudid/Fentanyl were given in ED) - s/p NSS 1L bolus - hypertonic saline 100cc bolus x2 - fluid restriction 1L - goal increase in Na 6-8mEq over 24 hours - will hold all home medications that can cause SIADH for now: Oxcarbazepine, Duloxetine, HCTZ, Nabumetone, Vortioxetine - maintain seizure precautions - consulted Nephrology - appreciate recs - Na improved to 128 over 11 hours, started DDAVP for overcorrection - cont. to trend BMP Q6H Hypokalemia/Hypochloremia, improving K 2.5, Cl 81. Suspect these are acutely low due to recent vomiting. - repleted with KCl 60mEq - most recent K 3.6, Cl 89 - trend BMP as above Chest Pain, resolved Burning chest pain following vomiting - suspect pain is GI in nature 2/2 to vomiting. hsTroponin negative x2 and EKG without ST/T changes. Chest pain was unchanged with SL Nitro and resolved with Dilaudid/Fentanyl. - CXR without free air and CT chest unremarkable - Tylenol PRN for pain Post-mastectomy pain syndrome -hold Oxcarbazepine and Nabumetone as stated above -May need to adjust home pain med regimen Depression/Anxiety -hold home Duloxetine and Vorioxetine as stated above. -Continue home Clonazepam PRN and Hydroxyzine HTN -hold home HCTZ as stated above. -Continue home Amlodipine and Nebivolol Hypothyroidism -Last TSH .319 in 2020. -repeat wnl, Cont. home Synthroid Breast cancer, s/p bilateral mastectomy -continue home Letrozole DVT ppx: SCDs FEN/GI: regular diet, 1L fluid restriction Code Status: Full Dispo: PCU (2) Hypokalemia: (3) Chest pain: (4) Depression: (5) Anxiety: (6) Post-mastectomy pain syndrome: (7) Migraine: (8) Hypertension: (9) Hypothyroidism: (10) H/O bilateral mastectomy: (11) Breast cancer: Admission and Anticipated Discharge Date Admission Date: June 12, 2022 Supervising Physician Co-Signing Physician Notes Patient seen and examined with PGY-2 Dr. Flynn. Agree with history, exam findings, assessment and plan of care as outlined. In brief, Ms. Fajardo is a 56 year old female wit history of breast cancer and post- mastectomy pain syndrome, HTN, hypothyroid, depression, anxiety admitted with headache, nausea found to have severe hyponatremia (Na 119) after starting oxcarbazepine for pain. This afternoon, headaches are improved as sodium levels have corrected. She is disappointed that the oxcarbazepine caused hyponatremia since it was the one medication, of many that she has tried, that has worked. 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 VS and nursing notes reviewed. Well appearing. Heart with regular rate and rhythm. No edema. Lungs are clear to auscultation in all lung torres with good air movement. Labs reviewed. 1. hyponatremia. Na on admission at 119, now corrected to 128. Received 2 doses of DDAVP due to overly quick correction. Continue with fluid restriction. BMP q6h. Holding potentially offending medications including oxcarbazepine, duloxetine, HCTZ, nabumetone, vortioxetine. But most likely offending agent is oxcarbazepine. Appreciate nephrology recommendations. 2. Hypokalemia. K 2.5 on admission. Corrected to normal after repletion. 3. chest pain. resolved. troponin negative x 2, EKG without ischemic changes. 4. HTN. Blood pressures have been in an acceptable range holding HCTZ. continue home amlodipine, nebivolol. Dipso: pending correction of Na. Hopeful for discharge tomorrow. Subjective Patient seen at bedside this morning. Generally feeling much better than prior. Mild nausea this morning but now resolved. Denies chest pain, SOB, vomiting, abdominal pain, MAGAÑA, dizziness, lightheadedness, urinary frequency. Says diet and fluid intake have been typical for her without recent changes. Only recent medication change was initiation of oxcarbazepine ~6 weeks ago which has been doing well for her neuropathy. Review of Systems Review of Systems: All systems reviewed & are unremarkable except as noted in HPI & below Physical Exam Physical Exam: General: AOx3. NAD. Cooperative. HEENT: Atraumatic, normocephalic. Pulm: CTAB A/P. No wheezes, rales, rhonchi. Symmetrical chest rise. No increase work of breathing. No respiratory distress. Cardiac: RRR, No murmurs. Radial pulses intact and symmetrical. No LE edema. Abdominal: soft, non-tender, non-distended, BS+ Skin: warm, dry, no rash Results & Data Results & Data ([facility]) Vital Signs (Past 12 Hours) Vital Signs Temp Pulse Pulse Resp BP BP Pulse Ox 06/12/22 08:19 65 06/12/22 06:57 37.1 C 63 16 116/69 95 06/12/22 06:21 61 17 99/57 L 95 06/12/22 05:00 65 14 110/58 L 97 06/12/22 04:00 60 10 L 94/51 L 96 06/12/22 03:00 62 14 103/56 L 97 06/12/22 01:34 96 06/12/22 01:00 119/67 06/12/22 01:00 72 28 H 92 06/12/22 00:30 130/76 06/12/22 00:30 81 16 98 06/12/22 01:20 76 20 119/67 97 06/12/22 00:00 137/80 06/11/22 23:41 86 17 94 06/11/22 23:41 134/82 06/11/22 23:30 77 12 97 06/11/22 23:26 94 06/11/22 23:26 06/11/22 23:20 36.7 C 06/11/22 23:07 83 16 139/86 97 O2 Del Method 06/12/22 08:19 06/12/22 06:57 Room Air 06/12/22 06:21 Room Air 06/12/22 05:00 Room Air 06/12/22 04:00 Room Air 06/12/22 03:00 Room Air 06/12/22 01:34 06/12/22 01:00 06/12/22 01:00 06/12/22 00:30 06/12/22 00:30 06/12/22 01:20 Room Air 06/12/22 00:00 06/11/22 23:41 06/11/22 23:41 06/11/22 23:30 06/11/22 23:26 Room Air 06/11/22 23:26 Room Air 06/11/22 23:20 06/11/22 23:07 Room Air Laboratory Results 06/12/22 06/12/22 06/12/22 Range/Units 07:00 06:56 05:03 WBC (4.8-10.8) K/ul RBC (3.93-5.22) M/uL Hgb (12.0-16.0) g/dl Hct (34.1-44.9) % MCV (80.0-100.0) fL MCH (25.0-34.0) pg MCHC (32.0-36.0) g/dL RDW Std Deviation (36.4-46.3) fL RDW Coeff of Gonzalo (11.5-14.5) % Plt Count (130-400) K/uL MPV (9.4-12.3) fL Immature Gran % (Auto) % Neut % (Auto) % Lymph % (Auto) % Mcnairy % (Auto) % Eos % (Auto) % Baso % (Auto) % Neut # (Auto) (1.4-6.5) K/uL Lymph # (Auto) (1.2-3.4) K/uL Mcnairy # (Auto) (0.24-0.82) K/uL Eos # (Auto) (0-0.50) K/uL Baso # (Auto) (0-0.2) K/uL Immature Gran # (Auto) (0.00-0.02) K/uL Sodium 122 L (136-145) mmol/L Potassium 3.8 (3.5-5.1) mmol/L Chloride 89 L (98-107) mmol/L Carbon Dioxide 28 (21-32) mmol/L Anion Gap 5 (3-11) BUN 7 (6-23) mg/dl Creatinine 0.56 L (0.6-1.2) mg/dl Est Cr Clr Drug Dosing 112.4 ml/min Est GFR ( Amer) 121.7 ml/min Est GFR (Non-Af Amer) 105.0 ml/min BUN/Creatinine Ratio 12.5 (10-20) Glucose 117 H (70-99(Fasting)) mg/dl Osmolality (280-300) mOsm/kg Calcium 8.9 (8.5-10.1) mg/dl Magnesium 1.7 (1.7-2.4) mg/dl Total Bilirubin (0.2-1.0) mg/dl AST (13-39) U/L ALT (7-52) U/L Alkaline Phosphatase (34-104) U/L Troponin I High Sens (0-14) pg/ml Total Protein (6.0-8.3) gm/dl Albumin (3.4-5.0) gm/dl Globulin (2.5-4.0) gm/dl Albumin/Globulin Ratio (0.9-2) Lipase (11-82) U/L TSH (0.300-4.500) uIu/ml Urine Osmolality (500-800) mOsm/kg Ur Random Sodium mmol/L Nasal Screen MRSA (PCR) Negative (Negative) Urine Opiates Screen (Neg) U Codeine Confrm GC/MS Ur Morphine (GC/MS) Ur Hydrocodone (GC/MS) Ur Norhydrocodone Ur Noroxycodone Urine Oxycodone (GC/MS) U Oxymorphone GC/MS Ur Methadone, Qual (Neg) Ur Hydromorphone (GC/MS) Urine Barbiturates (Neg) Ur Phencyclidine (PCP) (Neg) U Amphetamin/Meth Scrn (Neg) MDMA (Ecstasy) Screen (Neg) U Benzodiazepines Scrn (Neg) Ur Cocaine Metabolite (Neg) U Marijuana (THC) Screen (Neg) Drug Screen Comment SARS-CoV-2, RNA, NAAT (NEGATIVE) 06/12/22 06/12/22 06/12/22 Range/Units 05:03 01:36 01:36 WBC (4.8-10.8) K/ul RBC (3.93-5.22) M/uL Hgb (12.0-16.0) g/dl Hct (34.1-44.9) % MCV (80.0-100.0) fL MCH (25.0-34.0) pg MCHC (32.0-36.0) g/dL RDW Std Deviation (36.4-46.3) fL RDW Coeff of Gonzalo (11.5-14.5) % Plt Count (130-400) K/uL MPV (9.4-12.3) fL Immature Gran % (Auto) % Neut % (Auto) % Lymph % (Auto) % Mcnairy % (Auto) % Eos % (Auto) % Baso % (Auto) % Neut # (Auto) (1.4-6.5) K/uL Lymph # (Auto) (1.2-3.4) K/uL Mcnairy # (Auto) (0.24-0.82) K/uL Eos # (Auto) (0-0.50) K/uL Baso # (Auto) (0-0.2) K/uL Immature Gran # (Auto) (0.00-0.02) K/uL Sodium 120 L (136-145) mmol/L Potassium 3.4 L D (3.5-5.1) mmol/L Chloride 87 L (98-107) mmol/L Carbon Dioxide 27 (21-32) mmol/L Anion Gap 6 (3-11) BUN 8 (6-23) mg/dl Creatinine 0.50 L (0.6-1.2) mg/dl Est Cr Clr Drug Dosing 129.1 ml/min Est GFR ( Amer) 126.3 ml/min Est GFR (Non-Af Amer) 109.0 ml/min BUN/Creatinine Ratio 16.0 (10-20) Glucose 108 H (70-99(Fasting)) mg/dl Osmolality (280-300) mOsm/kg Calcium 8.5 (8.5-10.1) mg/dl Magnesium (1.7-2.4) mg/dl Total Bilirubin (0.2-1.0) mg/dl AST (13-39) U/L ALT (7-52) U/L Alkaline Phosphatase (34-104) U/L Troponin I High Sens Pending (0-14) pg/ml Total Protein (6.0-8.3) gm/dl Albumin (3.4-5.0) gm/dl Globulin (2.5-4.0) gm/dl Albumin/Globulin Ratio (0.9-2) Lipase (11-82) U/L TSH (0.300-4.500) uIu/ml Urine Osmolality (500-800) mOsm/kg Ur Random Sodium mmol/L Nasal Screen MRSA (PCR) (Negative) Urine Opiates Screen Pos H (Neg) U Codeine Confrm GC/MS Pending Ur Morphine (GC/MS) Pending Ur Hydrocodone (GC/MS) Pending Ur Norhydrocodone Pending Ur Noroxycodone Pending Urine Oxycodone (GC/MS) Pending U Oxymorphone GC/MS Pending Ur Methadone, Qual Neg (Neg) Ur Hydromorphone (GC/MS) Pending Urine Barbiturates Neg (Neg) Ur Phencyclidine (PCP) Neg (Neg) U Amphetamin/Meth Scrn Neg (Neg) MDMA (Ecstasy) Screen Neg (Neg) U Benzodiazepines Scrn Neg (Neg) Ur Cocaine Metabolite Neg (Neg) U Marijuana (THC) Screen Neg (Neg) Drug Screen Comment Pending SARS-CoV-2, RNA, NAAT (NEGATIVE) 06/12/22 06/12/22 06/12/22 Range/Units 01:36 01:36 01:14 WBC (4.8-10.8) K/ul RBC (3.93-5.22) M/uL Hgb (12.0-16.0) g/dl Hct (34.1-44.9) % MCV (80.0-100.0) fL MCH (25.0-34.0) pg MCHC (32.0-36.0) g/dL RDW Std Deviation (36.4-46.3) fL RDW Coeff of Gonzalo (11.5-14.5) % Plt Count (130-400) K/uL MPV (9.4-12.3) fL Immature Gran % (Auto) % Neut % (Auto) % Lymph % (Auto) % Mcnairy % (Auto) % Eos % (Auto) % Baso % (Auto) % Neut # (Auto) (1.4-6.5) K/uL Lymph # (Auto) (1.2-3.4) K/uL Mcnairy # (Auto) (0.24-0.82) K/uL Eos # (Auto) (0-0.50) K/uL Baso # (Auto) (0-0.2) K/uL Immature Gran # (Auto) (0.00-0.02) K/uL Sodium (136-145) mmol/L Potassium (3.5-5.1) mmol/L Chloride (98-107) mmol/L Carbon Dioxide (21-32) mmol/L Anion Gap (3-11) BUN (6-23) mg/dl Creatinine (0.6-1.2) mg/dl Est Cr Clr Drug Dosing ml/min Est GFR ( Amer) ml/min Est GFR (Non-Af Amer) ml/min BUN/Creatinine Ratio (10-20) Glucose (70-99(Fasting)) mg/dl Osmolality (280-300) mOsm/kg Calcium (8.5-10.1) mg/dl Magnesium (1.7-2.4) mg/dl Total Bilirubin (0.2-1.0) mg/dl AST (13-39) U/L ALT (7-52) U/L Alkaline Phosphatase (34-104) U/L Troponin I High Sens (0-14) pg/ml Total Protein (6.0-8.3) gm/dl Albumin (3.4-5.0) gm/dl Globulin (2.5-4.0) gm/dl Albumin/Globulin Ratio (0.9-2) Lipase (11-82) U/L TSH (0.300-4.500) uIu/ml Urine Osmolality 320 L (500-800) mOsm/kg Ur Random Sodium 100 mmol/L Nasal Screen MRSA (PCR) (Negative) Urine Opiates Screen (Neg) U Codeine Confrm GC/MS Ur Morphine (GC/MS) Ur Hydrocodone (GC/MS) Ur Norhydrocodone Ur Noroxycodone Urine Oxycodone (GC/MS) U Oxymorphone GC/MS Ur Methadone, Qual (Neg) Ur Hydromorphone (GC/MS) Urine Barbiturates (Neg) Ur Phencyclidine (PCP) (Neg) U Amphetamin/Meth Scrn (Neg) MDMA (Ecstasy) Screen (Neg) U Benzodiazepines Scrn (Neg) Ur Cocaine Metabolite (Neg) U Marijuana (THC) Screen (Neg) Drug Screen Comment SARS-CoV-2, RNA, NAAT NEGATIVE (NEGATIVE) 06/11/22 06/11/22 06/11/22 Range/Units 23:17 23:17 23:17 WBC (4.8-10.8) K/ul RBC (3.93-5.22) M/uL Hgb (12.0-16.0) g/dl Hct (34.1-44.9) % MCV (80.0-100.0) fL MCH (25.0-34.0) pg MCHC (32.0-36.0) g/dL RDW Std Deviation (36.4-46.3) fL RDW Coeff of Gonzalo (11.5-14.5) % Plt Count (130-400) K/uL MPV (9.4-12.3) fL Immature Gran % (Auto) % Neut % (Auto) % Lymph % (Auto) % Mcnairy % (Auto) % Eos % (Auto) % Baso % (Auto) % Neut # (Auto) (1.4-6.5) K/uL Lymph # (Auto) (1.2-3.4) K/uL Mcnairy # (Auto) (0.24-0.82) K/uL Eos # (Auto) (0-0.50) K/uL Baso # (Auto) (0-0.2) K/uL Immature Gran # (Auto) (0.00-0.02) K/uL Sodium 119 L* (136-145) mmol/L Potassium 2.5 L* (3.5-5.1) mmol/L Chloride 81 L (98-107) mmol/L Carbon Dioxide 26 (21-32) mmol/L Anion Gap 12 H (3-11) BUN 12 (6-23) mg/dl Creatinine 0.61 (0.6-1.2) mg/dl Est Cr Clr Drug Dosing 105.8 ml/min Est GFR ( Amer) 118.3 ml/min Est GFR (Non-Af Amer) 102.1 ml/min BUN/Creatinine Ratio 19.7 (10-20) Glucose 125 H (70-99(Fasting)) mg/dl Osmolality 251 L (280-300) mOsm/kg Calcium 10.0 (8.5-10.1) mg/dl Magnesium (1.7-2.4) mg/dl Total Bilirubin 1.3 H (0.2-1.0) mg/dl AST 30 (13-39) U/L ALT 22 (7-52) U/L Alkaline Phosphatase 101 (34-104) U/L Troponin I High Sens 3.9 (0-14) pg/ml Total Protein 7.7 (6.0-8.3) gm/dl Albumin 5.0 (3.4-5.0) gm/dl Globulin 2.7 (2.5-4.0) gm/dl Albumin/Globulin Ratio 1.9 (0.9-2) Lipase 9 L (11-82) U/L TSH 0.347 (0.300-4.500) uIu/ml Urine Osmolality (500-800) mOsm/kg Ur Random Sodium mmol/L Nasal Screen MRSA (PCR) (Negative) Urine Opiates Screen (Neg) U Codeine Confrm GC/MS Ur Morphine (GC/MS) Ur Hydrocodone (GC/MS) Ur Norhydrocodone Ur Noroxycodone Urine Oxycodone (GC/MS) U Oxymorphone GC/MS Ur Methadone, Qual (Neg) Ur Hydromorphone (GC/MS) Urine Barbiturates (Neg) Ur Phencyclidine (PCP) (Neg) U Amphetamin/Meth Scrn (Neg) MDMA (Ecstasy) Screen (Neg) U Benzodiazepines Scrn (Neg) Ur Cocaine Metabolite (Neg) U Marijuana (THC) Screen (Neg) Drug Screen Comment SARS-CoV-2, RNA, NAAT (NEGATIVE) 06/11/22 Range/Units 23:17 WBC 7.99 (4.8-10.8) K/ul RBC 4.56 (3.93-5.22) M/uL Hgb 13.8 (12.0-16.0) g/dl Hct 38.5 (34.1-44.9) % MCV 84.4 (80.0-100.0) fL MCH 30.3 (25.0-34.0) pg MCHC 35.8 (32.0-36.0) g/dL RDW Std Deviation 40.1 (36.4-46.3) fL RDW Coeff of Gonzalo 13.0 (11.5-14.5) % Plt Count 358 (130-400) K/uL MPV 8.5 L (9.4-12.3) fL Immature Gran % (Auto) 0.3 % Neut % (Auto) 47.0 % Lymph % (Auto) 37.8 % Mcnairy % (Auto) 12.9 % Eos % (Auto) 1.4 % Baso % (Auto) 0.6 % Neut # (Auto) 3.76 (1.4-6.5) K/uL Lymph # (Auto) 3.02 (1.2-3.4) K/uL Mcnairy # (Auto) 1.03 H (0.24-0.82) K/uL Eos # (Auto) 0.11 (0-0.50) K/uL Baso # (Auto) 0.05 (0-0.2) K/uL Immature Gran # (Auto) 0.02 (0.00-0.02) K/uL Sodium (136-145) mmol/L Potassium (3.5-5.1) mmol/L Chloride (98-107) mmol/L Carbon Dioxide (21-32) mmol/L Anion Gap (3-11) BUN (6-23) mg/dl Creatinine (0.6-1.2) mg/dl Est Cr Clr Drug Dosing ml/min Est GFR ( Amer) ml/min Est GFR (Non-Af Amer) ml/min BUN/Creatinine Ratio (10-20) Glucose (70-99(Fasting)) mg/dl Osmolality (280-300) mOsm/kg Calcium (8.5-10.1) mg/dl Magnesium (1.7-2.4) mg/dl Total Bilirubin (0.2-1.0) mg/dl AST (13-39) U/L ALT (7-52) U/L Alkaline Phosphatase (34-104) U/L Troponin I High Sens (0-14) pg/ml Total Protein (6.0-8.3) gm/dl Albumin (3.4-5.0) gm/dl Globulin (2.5-4.0) gm/dl Albumin/Globulin Ratio (0.9-2) Lipase (11-82) U/L TSH (0.300-4.500) uIu/ml Urine Osmolality (500-800) mOsm/kg Ur Random Sodium mmol/L Nasal Screen MRSA (PCR) (Negative) Urine Opiates Screen (Neg) U Codeine Confrm GC/MS Ur Morphine (GC/MS) Ur Hydrocodone (GC/MS) Ur Norhydrocodone Ur Noroxycodone Urine Oxycodone (GC/MS) U Oxymorphone GC/MS Ur Methadone, Qual (Neg) Ur Hydromorphone (GC/MS) Urine Barbiturates (Neg) Ur Phencyclidine (PCP) (Neg) U Amphetamin/Meth Scrn (Neg) MDMA (Ecstasy) Screen (Neg) U Benzodiazepines Scrn (Neg) Ur Cocaine Metabolite (Neg) U Marijuana (THC) Screen (Neg) Drug Screen Comment SARS-CoV-2, RNA, NAAT (NEGATIVE) Resident Activity Tracking Resident Involvement: Resident Care Provided Care Provided: Adult Hospital Medicine
--- NOTE | 2022-06-12 11:24 | Electrocardiogram Report ---
Test Reason : Blood Pressure : / mmHG Vent. Rate : 087 BPM Atrial Rate : 087 BPM P-R Int : 236 ms QRS Dur : 102 ms QT Int : 408 ms P-R-T Axes : 066 -10 038 degrees QTc Int : 490 ms Sinus rhythm with 1st degree A-V block Possible Left atrial enlargement Prolonged QT Abnormal ECG When compared with ECG of 06-DEC-2019 14:05, Vent. rate has increased BY 31 BPM Nonspecific T wave abnormality has replaced inverted T waves in Inferior leads T wave inversion no longer evident in Anterior leads QT has lengthened Confirmed by Zack Tavarez ([id number]) on 06/12/2022 11:24:33 AM Referred By: REFERRED SELF Confirmed By:Melquiades Tavarez
[2022-06-12 11:47] LABS: BUN Creatinine Ratio 11.9 (10-20); Calcium 9.5 mg/dl (8.5-10.1); Creatinine Clr Calc Pharmacy 106.7 ml/min; Est GFR (African American) 119.6 ml/min; Est GFR (Non-African American) 103.2 ml/min; Potassium 3.6 mmol/L (3.5-5.1)
[2022-06-12] MEDS ORDERED: DESMOPRESSIN ACETATE 2 MCG in SODIUM CHLORIDE 0.9% 50 ML IV STA (12:38)
[2022-06-12 14:18] LABS: Troponin I High Sensitivity 5.4 pg/ml (0-14)
[2022-06-12 15:51] LABS: BUN Creatinine Ratio 14.6 (10-20); Calcium 9.7 mg/dl (8.5-10.1); Creatinine Clr Calc Pharmacy 70.7 ml/min; Est GFR (African American) 84.6 ml/min; Magnesium 2.1 mg/dl (1.7-2.4); Potassium 4.1 mmol/L (3.5-5.1)
--- NOTE | 2022-06-12 17:08 | Nephrology Progress Note ---
Date of Service June 12, 2022 Assessment & Plan (1) Hyponatremia: Plan Afternoon labs reviewed. Rate of sodium correction is generous. Will administer IV DDAVP and continue to monitor Admission and Anticipated Discharge Date Admission Date: June 12, 2022 Results & Data ([facility]) Vital Signs (Past 12 Hours) Vital Signs Temp Pulse Pulse Resp BP Pulse Ox O2 Del Method 06/12/22 16:31 36.8 C 65 20 102/73 96 Room Air 06/12/22 15:53 67 06/12/22 14:55 36.8 C 60 18 96/61 L 96 Room Air 06/12/22 08:19 65 06/12/22 06:57 37.1 C 63 16 116/69 95 Room Air 06/12/22 06:21 61 17 99/57 L 95 Room Air PG Care Time/CCT Total # of Minutes Spent Total Time Spent with Patient: Total time spent is greater than 50% in coordination of care (as documented) at patient's floor/unit and/or counseling patient: Coding Level of Care Code None Diagnoses Hyponatremia E87.1
[2022-06-12] MEDS ORDERED: DESMOPRESSIN ACETATE 4 MCG in SODIUM CHLORIDE 0.9% 50 ML IV STA (17:13)
[2022-06-12] MEDS: hydrOXYzine HCl 25 MG TAB PO SCH (20:42)
[2022-06-12 21:18] LABS: BUN Creatinine Ratio 16.7 (10-20); Calcium 9.6 mg/dl (8.5-10.1); Creatinine Clr Calc Pharmacy 61.7 ml/min; Est GFR (African American) 71.7 ml/min; Est GFR (Non-African American) 61.9 ml/min
[2022-06-12] MEDS ORDERED: DESMOPRESSIN ACETATE IV STA (22:45)
[2022-06-13 03:50] LABS: BUN Creatinine Ratio 25.6 (10-20); Calcium 9.2 mg/dl (8.5-10.1); Creatinine Clr Calc Pharmacy 76.8 ml/min; Est GFR (African American) 93.4 ml/min; Est GFR (Non-African American) 80.6 ml/min; Potassium 4.1 mmol/L (3.5-5.1)
[2022-06-13] MEDS: LEVOTHYROXINE SODIUM 150 MCG TABLET PO SCH (05:12)
[2022-06-13] MEDS ORDERED: DESMOPRESSIN ACETATE 2 MCG in SYRINGE 9.5 ML IV STA (05:27)
--- NOTE | 2022-06-13 07:30 | Hospitalist Progress Note ---
Date of Service June 13, 2022 Assessment & Plan (1) Hyponatremia: Plan: Tracey Fajardo is a 56yo female with PMHx significant for depression/anxiety, h/o breast cancer (s/p bilateral mastectomy), post-mastectomy pain syndrome, migraines, HTN, and hypothyroidism who presented to [facility] ED on 06/12 for headaches, vomiting, and resultant burning chest pain. Hyponatremic with Na 119 in ED. Severe Hyponatremia Daily headaches x3 weeks followed by acute onset vomiting earlier in the evening and "brain fog" with Na 119 (previously normal last year), suspicious for acute development of severe hyponatremia with mild symptoms. Urine sodium and osm olality are both elevated, suggesting SIADH as etiology. Although patient is on several psychiatric medications that can cause SIADH, I suspect that Oxcarbazepine, which was started 6 weeks ago, is most likely culprit, however, its possible thiazide and SSRI may be contributing as well. - UDS positive for opiates (after Dilaudid/Fentanyl were given in ED) - s/p NSS 1L bolus - hypertonic saline 100cc bolus x2 - fluid restriction 1L - goal increase in Na 6-8mEq over 24 hours - will hold all home medications that can cause SIADH for now: Oxcarbazepine, Duloxetine, HCTZ, Nabumetone, Vortioxetine - maintain seizure precautions - consulted Nephrology - appreciate recs - Na improved to 128 over 11 hours, started DDAVP for overcorrection - cont. to trend BMP Q6H Hypokalemia/Hypochloremia, improving K 2.5, Cl 81. Suspect these are acutely low due to recent vomiting. - repleted with KCl 60mEq - most recent K 3.6, Cl 89 - trend BMP as above Chest Pain, resolved Burning chest pain following vomiting - suspect pain is GI in nature 2/2 to vomiting. hsTroponin negative x2 and EKG without ST/T changes. Chest pain was unchanged with SL Nitro and resolved with Dilaudid/Fentanyl. - CXR without free air and CT chest unremarkable - Tylenol PRN for pain Post-mastectomy pain syndrome -hold Oxcarbazepine and Nabumetone as stated above -May need to adjust home pain med regimen Depression/Anxiety -hold home Duloxetine and Vorioxetine as stated above. -Continue home Clonazepam PRN and Hydroxyzine HTN -hold home HCTZ as stated above. -Continue home Amlodipine and Nebivolol Hypothyroidism -Last TSH .319 in 2019. -repeat wnl, Cont. home Synthroid Breast cancer, s/p bilateral mastectomy -continue home Letrozole DVT ppx: SCDs FEN/GI: regular diet, 1L fluid restriction Code Status: Full Dispo: PCU (2) Hypokalemia: (3) Chest pain: (4) Depression: (5) Anxiety: (6) Post-mastectomy pain syndrome: (7) Migraine: (8) Hypertension: (9) Hypothyroidism: (10) H/O bilateral mastectomy: (11) Breast cancer: Admission and Anticipated Discharge Date Admission Date: June 12, 2022 Subjective Patient seen at bedside this morning. Overnight, Na monitored. Mildly increased which prompted additional DDAVP. Patient feels well, no acute complaints, completely at her baseline. Denies chest pain, SOB, vomiting, abdominal pain, MAGAÑA, dizziness, lightheadedness, urinary frequency. Review of Systems Review of Systems: All systems reviewed & are unremarkable except as noted in HPI & below Physical Exam Physical Exam: General: AOx3. NAD. Cooperative. HEENT: Atraumatic, normocephalic. Pulm: CTAB A/P. No wheezes, rales, rhonchi. Symmetrical chest rise. No increase work of breathing. No respiratory distress. Cardiac: RRR, No murmurs. Radial pulses intact and symmetrical. No LE edema. Abdominal: soft, nontender, nondistended, BS+ Skin: warm, dry, no rash Results & Data Results & Data ([facility]) Vital Signs (Past 12 Hours) Vital Signs Temp Pulse Pulse Resp BP BP Pulse Ox 06/13/22 04:00 36.8 C 58 L 17 134/79 97 06/12/22 23:52 58 L 06/12/22 23:28 36.9 C 97 H 12 110/67 97 06/12/22 19:41 36.9 C 58 L 15 90/47 L 95 O2 Del Method 06/13/22 04:00 Room Air 06/12/22 23:52 06/12/22 23:28 Room Air 06/12/22 19:41 Room Air Laboratory Results 06/13/22 06/13/22 06/12/22 Range/Units 08:32 03:11 20:41 Sodium Pending 134 L 133 L (136-145) mmol/L Potassium Pending 4.1 4.0 (3.5-5.1) mmol/L Chloride Pending 102 99 (98-107) mmol/L Carbon Dioxide Pending 27 28 (21-32) mmol/L Anion Gap Pending 5 6 (3-11) BUN Pending 21 17 (6-23) mg/dl Creatinine Pending 0.82 1.02 (0.6-1.2) mg/dl Est Cr Clr Drug Dosing Pending 76.8 61.7 ml/min Est GFR ( Amer) Pending 93.4 71.7 ml/min Est GFR (Non-Af Amer) Pending 80.6 61.9 ml/min BUN/Creatinine Ratio Pending 25.6 H 16.7 (10-20) Glucose Pending 106 H 109 H (70-99(Fasting)) mg/dl Calcium Pending 9.2 9.6 (8.5-10.1) mg/dl Magnesium (1.7-2.4) mg/dl Troponin I High Sens (0-14) pg/ml 06/12/22 06/12/22 06/12/22 Range/Units 15:14 11:01 05:03 Sodium 130 L 128 L (136-145) mmol/L Potassium 4.1 3.6 (3.5-5.1) mmol/L Chloride 98 96 L (98-107) mmol/L Carbon Dioxide 28 27 (21-32) mmol/L Anion Gap 4 5 (3-11) BUN 13 7 (6-23) mg/dl Creatinine 0.89 D 0.59 L (0.6-1.2) mg/dl Est Cr Clr Drug Dosing 70.7 106.7 ml/min Est GFR ( Amer) 84.6 119.6 ml/min Est GFR (Non-Af Amer) 73.0 103.2 ml/min BUN/Creatinine Ratio 14.6 11.9 (10-20) Glucose 115 H 113 H (70-99(Fasting)) mg/dl Calcium 9.7 9.5 (8.5-10.1) mg/dl Magnesium 2.1 2.0 (1.7-2.4) mg/dl Troponin I High Sens 5.4 (0-14) pg/ml
--- NOTE | 2022-06-13 08:15 | Nephrology Progress Note ---
Date of Service June 13, 2022 Assessment & Plan (1) Hyponatremia: Plan: * Serum sodium 133 mmol/L this am * Patient is neurologically intact * BP is acceptable off HCTZ * Recommend continuing to hold thiazide, SSRI and anticonvulsant * If follow up sodium is stable at noon, could consider discharge to home with close outpatient follow up by PCP Admission and Anticipated Discharge Date Admission Date: June 12, 2022 Subjective Mrs. Fajardo was evaluated in her hospital room this morning. She denied MAGAÑA, nausea or weakness. She has been able to ambulate in her room without assistance. She voiced no medical concerns and is anxious to return home Review of Systems Eyes: no problem reported Ear, Nose, Mouth, Throat: no problem reported Respiratory: no dyspnea Cardiovascular: no chest pain Gastrointestinal: no nausea and no vomiting Genitourinary: no dysuria Neurologic: no headache(s) Physical Exam Constitutional: no acute distress Eyes: PERRL, conjunctivae normal, anicteric sclerae ENMT: external ear and nose normal, oropharynx normal Neck: trachea midline, no thyromegaly Respiratory: normal respiratory effort, lungs clear to auscultation Cardiovascular: RRR, no murmur, no edema Gastrointestinal (Abdomen): normal bowel sounds, soft, nontender, no hepatosplenomegaly Skin: no rashes, warm and dry Neurologic: awake; not confused Results & Data ([facility]) Vital Signs (Past 12 Hours) Vital Signs Temp Pulse Pulse Resp BP BP Pulse Ox 06/13/22 04:00 36.8 C 58 L 17 134/79 97 06/12/22 23:52 58 L 06/12/22 23:28 36.9 C 97 H 12 110/67 97 O2 Del Method 06/13/22 04:00 Room Air 06/12/22 23:52 06/12/22 23:28 Room Air Laboratory Results Laboratory Tests 06/11/22 06/13/22 23:17 03:11 WBC 7.99 Hgb 13.8 Hct 38.5 Plt Count 358 Sodium 134 L Potassium 4.1 Chloride 102 Carbon Dioxide 27 BUN 21 Creatinine 0.82 Glucose 106 H PG Care Time/CCT Total # of Minutes Spent Total Time Spent with Patient: Total time spent is greater than 50% in coordination of care (as documented) at patient's floor/unit and/or counseling patient: Coding Level of Care Code 16206 Subseq Hosp Care Lvl 3 Diagnoses Hyponatremia E87.1
[2022-06-13] MEDS: amLODIPine BESYLATE 5 MG TAB PO SCH (08:31)
[2022-06-13] MEDS: LETROZOLE 2.5 MG TAB PO SCH (08:31)
[2022-06-13 09:09] LABS: BUN Creatinine Ratio 29.2 (10-20); Calcium 9.1 mg/dl (8.5-10.1); Creatinine Clr Calc Pharmacy 96.1 ml/min; Est GFR (African American) 115.8 ml/min; Est GFR (Non-African American) 99.9 ml/min; Potassium 3.9 mmol/L (3.5-5.1)
--- NOTE | 2022-06-13 11:14 | Discharge Summary ---
Date of Service June 13, 2022 Admission HPI Per Admitting Provider Tracey Fajardo is a 56yo female with PMHx significant for depression/anxiety, h/o breast cancer (s/p bilateral mastectomy), post-mastectomy pain syndrome, migraines, HTN, and hypothyroidism who presented to [facility] on 06/12 for headaches, vomiting and resultant burning chest pain. Patient reports that she was started on Trileptal for post-mastectomy pain syndrome ~6 weeks ago. Starting ~3 weeks ago the patient has had daily headaches which seemed to be slightly different in quality than her usual migraines. She then reports sudden onset of NB/NB vomiting in the early afternoon yesterday - 1 episode. She then had some residual nausea and decreased appetite, and proceeded to vomit 5 more times in the evening and once on arrival in our ED. She reports that she started to have a burning substernal chest pain that started with the vomiting which also prompted her to come to the ED. Patient denies any other new medications. She normally has adequate fluid intake and denies polydipsia. She, and her who is in the ED with her, deny confusion or altered mental status prior to arrival in the ED, although the patient's does say that she appears to be "thinking a little slower" since arrival. Patient denies dizziness/lightheadedness or imbalance. She denies current headache. Patient drinks two glasses of wine per day for "years" but denies beer or other alcohol use. Denies smoking or other drug use. Denies use of supplements beyond her prescribed medications. In the ED the patient was afebrile and hemodynamically stable on room air. Labs significant for Na 119, K 2.5, Cl 81. CXR unremarkable, in particular no evidence of free air. Chest CT done and results pending. COVID-19 negative. Patient received NSS 1L bolus, KCl 10mEq IV x1. Received Dilaudid 1mg IV total and Fentanyl 50mcg IV for chest pain - it is now nearly resolved. Received Nitro SL as well which did not improve pain. Received Compazine and Zofran for nausea - which is now resolved. Principal Diagnosis Severe hyponatremia Discharge Exam General: AOx3. NAD. Cooperative. HEENT: Atraumatic, normocephalic. Pulm: CTAB A/P. No wheezes, rales, rhonchi. Symmetrical chest rise. No increase work of breathing. No respiratory distress. Cardiac: RRR, No murmurs. Radial pulses intact and symmetrical. No LE edema. Abdominal: soft, nontender, nondistended, BS+ Skin: warm, dry, no rash Discharge Data Allergies Allergy/AdvReac Type Severity Reaction Status Date / Time amoxicillin Allergy Mild back pain, Verified 06/12/22 01:51 nausea, diarrhea clindamycin Allergy hives Verified 06/12/22 01:51 lisinopril Allergy heart Verified 06/12/22 01:51 palpatations azithromycin AdvReac Intermediate vomiting Verified 06/12/22 01:51 Chloraprep Allergy Unknown Hives Uncoded 06/12/22 01:51 Consultations 06/12/22 00:57 ED Decision to Admit Stat 06/12/22 06:23 Consult Nephrology Routine Ordered Studies Laboratory Results WBC 7.99 K/ul (4.8-10.8) 06/11/22 23:17 RBC 4.56 M/uL (3.93-5.22) 06/11/22 23:17 Hgb 13.8 g/dl (12.0-16.0) 06/11/22 23:17 Hct 38.5 % (34.1-44.9) 06/11/22 23:17 MCV 84.4 fL (80.0-100.0) 06/11/22 23:17 MCH 30.3 pg (25.0-34.0) 06/11/22 23:17 MCHC 35.8 g/dL (32.0-36.0) 06/11/22 23:17 RDW Std Deviation 40.1 fL (36.4-46.3) 06/11/22 23:17 RDW Coeff of Gonzalo 13.0 % (11.5-14.5) 06/11/22 23:17 Plt Count 358 K/uL (130-400) 06/11/22 23:17 MPV 8.5 fL (9.4-12.3) L 06/11/22 23:17 Immature Gran % (Auto) 0.3 % 06/11/22 23:17 Neut % (Auto) 47.0 % 06/11/22 23:17 Lymph % (Auto) 37.8 % 06/11/22 23:17 [place] % (Auto) 12.9 % 06/11/22 23:17 Eos % (Auto) 1.4 % 06/11/22 23:17 Baso % (Auto) 0.6 % 06/11/22 23:17 Neut # (Auto) 3.76 K/uL (1.4-6.5) 06/11/22 23:17 Lymph # (Auto) 3.02 K/uL (1.2-3.4) 06/11/22 23:17 [place] # (Auto) 1.03 K/uL (0.24-0.82) H 06/11/22 23:17 Eos # (Auto) 0.11 K/uL (0-0.50) 06/11/22 23:17 Baso # (Auto) 0.05 K/uL (0-0.2) 06/11/22 23:17 Immature Gran # (Auto) 0.02 K/uL (0.00-0.02) 06/11/22 23:17 Sodium 133 mmol/L (136-145) L 06/13/22 08:32 Potassium 3.9 mmol/L (3.5-5.1) 06/13/22 08:32 Chloride 102 mmol/L (98-107) 06/13/22 08:32 Carbon Dioxide 26 mmol/L (21-32) 06/13/22 08:32 Anion Gap 5 (3-11) 06/13/22 08:32 BUN 19 mg/dl (6-23) 06/13/22 08:32 Creatinine 0.65 mg/dl (0.6-1.2) 06/13/22 08:32 Est Cr Clr Drug Dosing 96.1 ml/min 06/13/22 08:32 Est GFR ( Amer) 115.8 ml/min 06/13/22 08:32 Est GFR (Non-Af Amer) 99.9 ml/min 06/13/22 08:32 BUN/Creatinine Ratio 29.2 (10-20) H 06/13/22 08:32 Glucose 137 mg/dl (70-99(Fasting)) H 06/13/22 08:32 Osmolality 251 mOsm/kg (280-300) L 06/11/22 23:17 Calcium 9.1 mg/dl (8.5-10.1) 06/13/22 08:32 Magnesium 2.1 mg/dl (1.7-2.4) 06/12/22 15:14 Total Bilirubin 1.3 mg/dl (0.2-1.0) H 06/11/22 23:17 AST 30 U/L (13-39) 06/11/22 23:17 ALT 22 U/L (7-52) 06/11/22 23:17 Alkaline Phosphatase 101 U/L (34-104) 06/11/22 23:17 Troponin I High Sens 5.4 pg/ml (0-14) 06/12/22 05:03 Total Protein 7.7 gm/dl (6.0-8.3) 06/11/22 23:17 Albumin 5.0 gm/dl (3.4-5.0) 06/11/22 23:17 Globulin 2.7 gm/dl (2.5-4.0) 06/11/22 23:17 Albumin/Globulin Ratio 1.9 (0.9-2) 06/11/22 23:17 Lipase 9 U/L (11-82) L 06/11/22 23:17 TSH 0.347 uIu/ml (0.300-4.500) 06/11/22 23:17 Urine Osmolality 320 mOsm/kg (500-800) L 06/12/22 01:36 Ur Random Sodium 100 mmol/L 06/12/22 01:36 Nasal Screen MRSA (PCR) Negative (Negative) 06/12/22 07:00 Urine Opiates Screen Pos (Neg) H 06/12/22 01:36 Ur Methadone, Qual Neg (Neg) 06/12/22 01:36 Urine Barbiturates Neg (Neg) 06/12/22 01:36 Ur Phencyclidine (PCP) Neg (Neg) 06/12/22 01:36 U Amphetamin/Meth Scrn Neg (Neg) 06/12/22 01:36 MDMA (Ecstasy) Screen Neg (Neg) 06/12/22 01:36 U Benzodiazepines Scrn Neg (Neg) 06/12/22 01:36 Ur Cocaine Metabolite Neg (Neg) 06/12/22 01:36 U Marijuana (THC) Screen Neg (Neg) 06/12/22 01:36 SARS-CoV-2, RNA, NAAT NEGATIVE (NEGATIVE) 06/12/22 01:14 Impressions Chest X-Ray 06/11/22 23:19 XR chest 1V portable CLINICAL HISTORY: Chest Pain. COMPARISON STUDY: 08/08/2020 TECHNIQUE: 1 view of the chest FINDINGS: Single frontal view of the chest demonstrates the cardiomediastinal silhouette to be within normal limits. The lungs are clear of alveolar opacities. There is no evidence for pleural effusion. There is no evidence for vascular congestion. There is no acute osseous pathology. IMPRESSION: 1. No acute cardiopulmonary disease. ACT 112: Negative or not required by law. Electronically signed by: Markel Beyer M.D. 06/12/2022 8:[address] 06/12/22 00:16 CT chest diagnostic w con CLINICAL HISTORY: substernal chest pain TECHNIQUE: Multidetector row helical CT of the chest was performed with intravenous contrast. Coronal and sagittal reformations were obtained. Automated dose lowering techniques and/or adjustment according to patient size were utilized for this exam. CT DOSE: 203.39 mGy.cm Comparison: Chest radiograph 06/11/2022 FINDINGS: Lungs and pleura: Atelectasis versus scarring is seen in the dependent portions of the lungs. Heart and pericardium: Heart size is normal. No pericardial effusion. Vessels: Unremarkable. Mediastinum and kady: Unremarkable. Chest wall and lower neck: Surgical clips are seen in the bilateral chest wall. Abdomen: Unremarkable. Bones: Degenerative changes in the thoracic spine. IMPRESSION: Unremarkable evaluation of the chest. ACT 112: Negative or not required by law. Electronically signed by: Jose Elias Reagan M.D. 06/12/2022 8:12 AM Hospital Course (1) Hyponatremia: Tracey Fajardo is a 56yo female with PMHx significant for depression/anxiety, h/o breast cancer (s/p bilateral mastectomy), post-mastectomy pain syndrome, migraines, HTN, and hypothyroidism who presented to [facility] ED on 06/12 for headaches, vomiting, and resultant burning chest pain. Hyponatremic with Na 119 in ED. Severe Hyponatremia Daily headaches x3 weeks followed by acute onset vomiting earlier in the evening and "brain fog" with Na 119 (previously normal last year), suspicious for acute development of severe hyponatremia with mild symptoms. Urine sodium and osmolality are both elevated, suggesting SIADH as etiology. Although patient is on several psychiatric medications that can cause SIADH, I suspect that Oxcarbazepine, which was started 6 weeks ago, is most likely culprit, however, its possible thiazide and SSRI may be contributing as well. - UDS positive for opiates (after Dilaudid/Fentanyl were given in ED) - s/p NSS 1L bolus - hypertonic saline 100cc bolus x2 - fluid restriction 1L - goal increase in Na 6-8mEq over 24 hours - held all home medications that can cause SIADH during stay: Oxcarbazepine, Duloxetine, HCTZ, Nabumetone, Vortioxetine - maintain seizure precautions - consulted Nephrology - appreciate recs - Na improved to 128 over first 11 hours, started DDAVP for overcorrection - Na stabilized to near normal levels - On discharge will d/c oxcarbazepine as this was the most likely cause for SIADH. HCTZ may be contributing so will d/c this as well given her BPs stable during hospital stay. - Restart home duloxetine, nabumetone, and vortioxetine; although these can contribute to SIADH, she has been on these chronically and do provide her significant benefit - f/u PCP within 1 wk; would also f/u with her neurology for replacement of oxcarbazepine Hypokalemia/Hypochloremia, resolved K 2.5, Cl 81. Suspect these are acutely low due to recent vomiting. - K repleted - most recent K 3.9, Cl 102 Chest Pain, resolved Burning chest pain following vomiting - suspect pain is GI in nature 2/2 to vomiting. hsTroponin negative x2 and EKG without ST/T changes. Chest pain was unchanged with SL Nitro and resolved with Dilaudid/Fentanyl. - CXR without free air and CT chest unremarkable - Tylenol PRN for pain Post-mastectomy pain syndrome -d/c Oxcarbazepine -restart Nabumetone as above Depression/Anxiety -restart Duloxetine and Vorioxetine as stated above. -Continue home Clonazepam PRN and Hydroxyzine HTN -d/c HCTZ as stated above. -Continue home Amlodipine and Nebivolol Hypothyroidism -Last TSH .319 in 2019. -repeat wnl, Cont. home Synthroid Breast cancer, s/p bilateral mastectomy -continue home Letrozole (2) Hypokalemia: (3) Chest pain: (4) Depression: (5) Anxiety: (6) Post-mastectomy pain syndrome: (7) Migraine: (8) Hypertension: (9) Hypothyroidism: (10) H/O bilateral mastectomy: (11) Breast cancer: Discharge Plan Discharge Items Patient Disposition: Home - Self-Care Reason For Visit: HYPONATREMIA Discharge Diagnosis: Severe Hyponatremia Activity: Per Instructions section Non-emergency contact: Primary Care Provider Call non-emergency contact if: you have any medication questions and your symptoms worsen Follow-up/Referrals: Latasha Arredondo PA-C [Physician Completions Engineer] - Radha Toro DO [Primary Care Provider] - (within 1 wk ) Diet: Regular Addtl Attending Provider Instructions: You were admitted to the hospital for headache, nausea, vomiting due to severe hyponatremia (low sodium) found in the ED. We monitored your levels closely while giving you fluids. Your sodium levels did begin to improve but faster than we would have liked which prompted us to give you a medication called desmopressin to slow down the increase. Upon discharge, we made sure your sodium levels were appropriate and stable for discharge. We believe the most likely culprit for this presentation was your new medication oxcarbazepine which we would like to discontinue going forward. Alternative options can be discussed with your PCP. Another possible contributing medication is your hydrochlorothiazide (BP medication). In the hospital your BP was at goal without the hydrochlorothiazide, so we will discontinue this as well. At home I urge you to check your BP daily and create a BP log which you can take to your PCP for further evaluation. Goal BP <130/<80. Some other medications that have been known to contribute include your duloxetine, Nabumetone, and Vortioxetine. However, we will continue these for now as you have been on these for a long time and they are more of a necessity for you. Please follow up with your PCP within 1 wk. Would also recommend following up with your neurologist for alternative treatment options. Medications discontinued: -oxcarbazepine -hydrochlorothiazide Pending Studies at Discharge: No Stand-Alone Forms: My Crystals[employer], Smoking Cessation Medications and DC Order Prescriptions: Continued clonazepam [Klonopin] 1 mg tablet 1 mg PO BID PRN (Reason: Anxiety) letrozole [Femara] 2.5 mg tablet 2.5 mg PO DAILY zlyyqzwalz-jtjqoos-lblbozek 50-325-40 mg capsule 1 cap PO Q4H PRN (Reason: Migraine Headache) amlodipine 5 mg tablet 5 mg PO DAILY hydroxyzine pamoate 25 mg capsule 25 mg PO HS nabumetone 750 mg tablet 750 mg PO BID acetaminophen-codeine 300-30 mg tablet 1 tab PO Q8H PRN (Reason: pain) Qty: 30 0RF levothyroxine 150 mcg tablet 150 mcg PO DAILY Qty: 90 3RF Bystolic 20 mg tablet 20 mg PO DAILY Qty: 30 0RF duloxetine [Cymbalta] 30 mg capsule,delayed release(DR/EC) 30 mg PO HS Qty: 90 1RF duloxetine [Cymbalta] 60 mg capsule,delayed release(DR/EC) 60 mg PO QAM 30 Days Qty: 30 5RF Trintellix 20 mg tablet 20 mg PO DAILY Nurtec ODT 75 mg tablet,disintegrating 75 mg PO ONCE PRN (Reason: migraine headache) Discontinued hydrochlorothiazide 25 mg tablet 25 mg PO DAILY Qty: 90 3RF oxcarbazepine 300 mg tablet 300 mg PO BID Qty: 60 5RF Admission Data Admit Date/Time: 06/12/22 01:42 Attending Provider: Kristen Hoyt Admit Provider: Brandon Santoyo Primary Care Provider: Radha Toro Other Providers: Jaime Sosa ; Singh Jalloh
[2022-06-13 12:38] LABS: BUN Creatinine Ratio 21.6 (10-20); Calcium 8.9 mg/dl (8.5-10.1); Creatinine Clr Calc Pharmacy 84.4 ml/min; Est GFR (African American) 105.7 ml/min; Est GFR (Non-African American) 91.2 ml/min; Potassium 3.9 mmol/L (3.5-5.1)
[2022-06-13] MEDS ORDERED: DOCUSATE SODIUM 100 MG CAP PO ONE (16:30)
[2022-06-13 17:09] LABS: BUN Creatinine Ratio 24.2 (10-20); Calcium 9.4 mg/dl (8.5-10.1); Creatinine Clr Calc Pharmacy 94.6 ml/min; Est GFR (African American) 115.3 ml/min; Est GFR (Non-African American) 99.4 ml/min; Potassium 4.2 mmol/L (3.5-5.1)
--- NOTE | 2022-06-13 17:49 | Hospitalist Progress Note ---
Date of Service June 13, 2022 Assessment & Plan (1) Hyponatremia: Plan: Tracey Fajardo is a 56yo female with PMHx significant for depression/anxiety, h/o breast cancer (s/p bilateral mastectomy), post-mastectomy pain syndrome, migraines, HTN, and hypothyroidism who presented to [facility] on 06/12 for headaches, vomiting, and resultant burning chest pain. Hyponatremic with Na 119 in ED. Severe Hyponatremia Daily headaches x3 weeks followed by acute onset vomiting earlier in the evening and "brain fog" with Na 119 (previously normal last year), suspicious for acute development of severe hyponatremia with mild symptoms. Urine sodium and osmo lality are both elevated, suggesting SIADH as etiology. Although patient is on several psychiatric medications that can cause SIADH, I suspect that Oxcarbazepine, which was started 6 weeks ago, is most likely culprit, however, its possible thiazide and SSRI may be contributing as well. - UDS positive for opiates (after Dilaudid/Fentanyl were given in ED) - s/p NSS 1L bolus - hypertonic saline 100cc bolus x2 - fluid restriction 1L - goal increase in Na 6-8mEq over 24 hours - will hold all home medications that can cause SIADH for now: Oxcarbazepine, Duloxetine, HCTZ, Nabumetone, Vortioxetine - maintain seizure precautions - consulted Nephrology - appreciate recs - Na was overcorrecting, DDAVP was started (06/12) - cont. monitoring Na with bmp in am; will want to see improved Na ~135 Hypokalemia/Hypochloremia, resolved K 2.5, Cl 81. Suspect these are acutely low due to recent vomiting. - repleted with KCl 60mEq - most recent K 42, Cl 98 Chest Pain, resolved Burning chest pain following vomiting - suspect pain is GI in nature 2/2 to vomiting. hsTroponin negative x2 and EKG without ST/T changes. Chest pain was unchanged with SL Nitro and resolved with Dilaudid/Fentanyl. - CXR without free air and CT chest unremarkable - Tylenol PRN for pain Post-mastectomy pain syndrome -hold Oxcarbazepine and Nabumetone as stated above -May need to adjust home pain med regimen Depression/Anxiety -hold home Duloxetine and Vorioxetine as stated above. -Continue home Clonazepam PRN and Hydroxyzine HTN -hold home HCTZ as stated above. -Continue home Amlodipine and Nebivolol Hypothyroidism -Last TSH .319 in 2019. -repeat wnl, Cont. home Synthroid Breast cancer, s/p bilateral mastectomy -continue home Letrozole DVT ppx:SCDs FEN/GI:regular diet, 1L fluid restriction Code Status:Full Dispo:PCU (2) Hypokalemia: (3) Chest pain: (4) Depression: (5) Anxiety: (6) Post-mastectomy pain syndrome: (7) Migraine: (8) Hypertension: (9) Hypothyroidism: (10) H/O bilateral mastectomy: (11) Breast cancer: Admission and Anticipated Discharge Date Admission Date: June 12, 2022 Supervising Physician Co-Signing Physician Notes Patient seen and examined with PGY-2 Dr. Flynn. Agree with history, exam findings, assessment and plan of care as outlined. In brief, Ms. Fajardo is a 56 year old female wit history of breast cancer and post- mastectomy pain syndrome, HTN, hypothyroid, depression, anxiety admitted with headache, nausea found to have severe hyponatremia (Na 119) after starting oxcarbazepine for pain. This morning she is feeling well. Hopeful for discharge tomorrow AM based on morning sodium level. VS and nursing notes reviewed. Well appearing. Heart with regular rate and rhythm. No edema. Lungs are clear to auscultation in all lung torres with good air movement. Labs reviewed. 1. hyponatremia. Na on admission at 119, now corrected to 134. Repeat BMP in the morning. Holding potentially offending medications including oxcarbazepine, duloxetine, HCTZ, nabumetone, vortioxetine. But most likely offending agent is oxcarbazepine. Can restart all meds except oxcarbazepine and HCTZ on discharge. Appreciate nephrology recommendations. 2. Hypokalemia. K 2.5 on admission. Corrected to normal after repletion. 3. chest pain. resolved. troponin negative x 2, EKG without ischemic changes. 4. HTN. Blood pressures have been in an acceptable range holding HCTZ. continue home amlodipine, nebivolol. Consider continuing without the HCTZ on discharge. Dipso: pending correction of Na. Hopeful for discharge tomorrow. Subjective Patient seen at bedside this morning. Feels great, at her baseline. Denies chest pain, SOB, vomiting, abdominal pain, MAGAÑA, dizziness, lightheadedness, urinary frequency. Review of Systems Review of Systems: All systems reviewed & are unremarkable except as noted in HPI & below Physical Exam Physical Exam: General: AOx3. NAD. Cooperative. HEENT: Atraumatic, normocephalic. Pulm: CTAB A/P. No wheezes, rales, rhonchi. Symmetrical chest rise. No increase work of breathing. No respiratory distress. Cardiac: RRR, No murmurs. No LE edema. Abdominal: soft, nontender, nondistended, BS+ Skin: warm, dry, no rash Results & Data Results & Data ([facility]) Vital Signs (Past 12 Hours) Vital Signs Temp Pulse Resp BP Pulse Ox O2 Del Method 06/13/22 15:00 56 L 06/13/22 08:00 36.7 C 06/13/22 11:46 118/66 06/13/22 11:46 66 19 06/13/22 10:00 67 16 06/13/22 08:30 63 21 98 Room Air 06/13/22 08:30 115/64 06/13/22 07:00 62 18 06/13/22 11:57 36.8 C 06/13/22 11:56 Room Air Laboratory Results 06/13/22 06/13/22 06/13/22 Range/Units 16:17 12:02 08:32 Sodium 131 L 130 L 133 L (136-145) mmol/L Potassium 4.2 3.9 3.9 (3.5-5.1) mmol/L Chloride 98 100 102 (98-107) mmol/L Carbon Dioxide 28 26 26 (21-32) mmol/L Anion Gap 5 4 5 (3-11) BUN 16 16 19 (6-23) mg/dl Creatinine 0.66 0.74 0.65 (0.6-1.2) mg/dl Est Cr Clr Drug Dosing 94.6 84.4 96.1 ml/min Est GFR ( Amer) 115.3 105.7 115.8 ml/min Est GFR (Non-Af Amer) 99.4 91.2 99.9 ml/min BUN/Creatinine Ratio 24.2 H 21.6 H 29.2 H (10-20) Glucose 106 H 180 H 137 H (70-99(Fasting)) mg/dl Calcium 9.4 8.9 9.1 (8.5-10.1) mg/dl 06/13/22 06/12/22 Range/Units 03:11 20:41 Sodium 134 L 133 L (136-145) mmol/L Potassium 4.1 4.0 (3.5-5.1) mmol/L Chloride 102 99 (98-107) mmol/L Carbon Dioxide 27 28 (21-32) mmol/L Anion Gap 5 6 (3-11) BUN 21 17 (6-23) mg/dl Creatinine 0.82 1.02 (0.6-1.2) mg/dl Est Cr Clr Drug Dosing 76.8 61.7 ml/min Est GFR ( Amer) 93.4 71.7 ml/min Est GFR (Non-Af Amer) 80.6 61.9 ml/min BUN/Creatinine Ratio 25.6 H 16.7 (10-20) Glucose 106 H 109 H (70-99(Fasting)) mg/dl Calcium 9.2 9.6 (8.5-10.1) mg/dl Resident Activity Tracking Resident Involvement: Resident Care Provided Care Provided: Adult Hospital Medicine
[2022-06-13 19:56] LABS: Codeine Urine 590 ng/mL (<50); Hydrocodone Urine NEGATIVE ng/mL (<50); Hydromor Urine 85 ng/mL (<50); Morphine Urine 105 ng/mL (<50); Norhydrocodone Conf Ur NEGATIVE ng/mL (<50); Noroxycodone Urine NEGATIVE ng/mL (<50); Oxycodone Urine NEGATIVE ng/mL (<50); Oxymorph Urine NEGATIVE ng/mL (<50)
[2022-06-13] MEDS: hydrOXYzine HCl 25 MG TAB PO SCH (20:51)
[2022-06-14] MEDS ORDERED: MELATONIN 3 MG TAB PO PRN (01:28)
[2022-06-14] MEDS ORDERED: COUGH DROP (SUGAR FREE) LOZ 24 LOZ/1 BOX BUCCAL PRN (01:38)
[2022-06-14] MEDS ORDERED: MELATONIN 3 MG TAB PO ONE (01:59)
[2022-06-14 05:32] LABS: BUN Creatinine Ratio 14.1 (10-20); Calcium 8.8 mg/dl (8.5-10.1); Creatinine Clr Calc Pharmacy 97.6 ml/min; Est GFR (African American) 116.4 ml/min; Est GFR (Non-African American) 100.5 ml/min; Potassium 4.3 mmol/L (3.5-5.1)
[2022-06-14] MEDS: LEVOTHYROXINE SODIUM 150 MCG TABLET PO SCH (06:08)
--- NOTE | 2022-06-14 08:14 | Nephrology Progress Note ---
Date of Service June 14, 2022 Assessment & Plan (1) Hyponatremia: Plan: * Serum sodium Stable at 132 mmol/L this am * Patient is neurologically intact * BP is acceptable off HCTZ * Recommend continuing to hold thiazide, SSRI and anticonvulsant * OK to discharge to home this morning. I have placed order in EMR to have PRP w/ [facility] drawn 06/17/22 and asked my office staff to contact patient to schedule hospital follow up 06/19. Patient is aware and agreeable Admission and Anticipated Discharge Date Admission Date: June 12, 2022 Subjective Mrs. Fajardo was evaluated in her hospital room this morning. She was alert and oriented x3. She denied MAGAÑA and had been ambulating in her room without assistance. She voiced no new medical concerns. Review of Systems Eyes: no problem reported Ear, Nose, Mouth, Throat: no problem reported Respiratory: no dyspnea Cardiovascular: no chest pain Gastrointestinal: no nausea and no vomiting Genitourinary: no dysuria Neurologic: no headache(s) Physical Exam Constitutional: no acute distress Eyes: PERRL, conjunctivae normal, anicteric sclerae ENMT: external ear and nose normal, oropharynx normal Neck: trachea midline, no thyromegaly Respiratory: normal respiratory effort, lungs clear to auscultation Cardiovascular: RRR, no murmur, no edema Gastrointestinal (Abdomen): normal bowel sounds, soft, nontender, no hepatosplenomegaly Skin: no rashes, warm and dry Neurologic: awake; not confused Results & Data ([facility]) Vital Signs (Past 12 Hours) Vital Signs Temp Pulse Resp BP Pulse Ox O2 Del Method 06/14/22 04:00 37.1 C 54 L 16 106/69 95 Room Air 06/14/22 00:14 36.7 C 71 17 120/71 98 Room Air 06/13/22 23:45 67 Laboratory Results Laboratory Tests 06/11/22 06/14/22 23:17 04:53 WBC 7.99 Hgb 13.8 Hct 38.5 Plt Count 358 Sodium 132 L Potassium 4.3 Chloride 101 Carbon Dioxide 26 BUN 9 Creatinine 0.64 Glucose 110 H PG Care Time/CCT Total # of Minutes Spent Total Time Spent with Patient: Total time spent is greater than 50% in coordination of care (as documented) at patient's floor/unit and/or counseling patient: Coding Level of Care Code 76669 Subseq Hosp Care Lvl 3 Diagnoses Hyponatremia E87.1
[2022-06-14] MEDS: amLODIPine BESYLATE 5 MG TAB PO SCH (08:20)
[2022-06-14] MEDS: LETROZOLE 2.5 MG TAB PO SCH (08:20)
--- NOTE | 2022-06-14 10:54 | Discharge Summary ---
Date of Service June 14, 2022 Principal Diagnosis Severe hyponatremia Discharge Exam General: AOx3. NAD. Cooperative. HEENT: Atraumatic, normocephalic. Pulm: CTAB A/P. No wheezes, rales, rhonchi. Symmetrical chest rise. No increase work of breathing. No respiratory distress. Cardiac: RRR, No murmurs. No LE edema. Abdominal: soft, nontender, nondistended, BS+ Skin: warm, dry, no rash Discharge Data Allergies Allergy/AdvReac Type Severity Reaction Status Date / Time amoxicillin Allergy Mild back pain, Verified 06/12/22 01:51 nausea, diarrhea chlorhexidine Allergy Unknown Hives Verified 06/14/22 02:02 isopropyl alcohol Allergy Unknown Hives Verified 06/14/22 02:02 clindamycin Allergy hives Verified 06/12/22 01:51 lisinopril Allergy heart Verified 06/12/22 01:51 palpatations azithromycin AdvReac Intermediate vomiting Verified 06/12/22 01:51 Consultations 06/12/22 00:57 ED Decision to Admit Stat 06/12/22 06:23 Consult Nephrology Routine Ordered Studies Laboratory Results WBC 7.99 K/ul (4.8-10.8) 06/11/22 23:17 RBC 4.56 M/uL (3.93-5.22) 06/11/22 23:17 Hgb 13.8 g/dl (12.0-16.0) 06/11/22 23:17 Hct 38.5 % (34.1-44.9) 06/11/22 23:17 MCV 84.4 fL (80.0-100.0) 06/11/22 23:17 MCH 30.3 pg (25.0-34.0) 06/11/22 23:17 MCHC 35.8 g/dL (32.0-36.0) 06/11/22 23:17 RDW Std Deviation 40.1 fL (36.4-46.3) 06/11/22 23:17 RDW Coeff of Gonzalo 13.0 % (11.5-14.5) 06/11/22 23:17 Plt Count 358 K/uL (130-400) 06/11/22 23:17 MPV 8.5 fL (9.4-12.3) L 06/11/22 23:17 Immature Gran % (Auto) 0.3 % 06/11/22 23:17 Neut % (Auto) 47.0 % 06/11/22 23:17 Lymph % (Auto) 37.8 % 06/11/22 23:17 [place]rowers % (Auto) 12.9 % 06/11/22 23:17 Eos % (Auto) 1.4 % 06/11/22 23:17 Baso % (Auto) 0.6 % 06/11/22 23:17 Neut # (Auto) 3.76 K/uL (1.4-6.5) 06/11/22 23:17 Lymph # (Auto) 3.02 K/uL (1.2-3.4) 06/11/22 23:17 Prowers # (Auto) 1.03 K/uL (0.24-0.82) H 06/11/22 23:17 Eos # (Auto) 0.11 K/uL (0-0.50) 06/11/22 23:17 Baso # (Auto) 0.05 K/uL (0-0.2) 06/11/22 23:17 Immature Gran # (Auto) 0.02 K/uL (0.00-0.02) 06/11/22 23:17 Sodium 132 mmol/L (136-145) L 06/14/22 04:53 Potassium 4.3 mmol/L (3.5-5.1) 06/14/22 04:53 Chloride 101 mmol/L (98-107) 06/14/22 04:53 Carbon Dioxide 26 mmol/L (21-32) 06/14/22 04:53 Anion Gap 5 (3-11) 06/14/22 04:53 BUN 9 mg/dl (6-23) 06/14/22 04:53 Creatinine 0.64 mg/dl (0.6-1.2) 06/14/22 04:53 Est Cr Clr Drug Dosing 97.6 ml/min 06/14/22 04:53 Est GFR ( Amer) 116.4 ml/min 06/14/22 04:53 Est GFR (Non-Af Amer) 100.5 ml/min 06/14/22 04:53 BUN/Creatinine Ratio 14.1 (10-20) 06/14/22 04:53 Glucose 110 mg/dl (70-99(Fasting)) H 06/14/22 04:53 Osmolality 251 mOsm/kg (280-300) L 06/11/22 23:17 Calcium 8.8 mg/dl (8.5-10.1) 06/14/22 04:53 Magnesium 2.1 mg/dl (1.7-2.4) 06/12/22 15:14 Total Bilirubin 1.3 mg/dl (0.2-1.0) H 06/11/22 23:17 AST 30 U/L (13-39) 06/11/22 23:17 ALT 22 U/L (7-52) 06/11/22 23:17 Alkaline Phosphatase 101 U/L (34-104) 06/11/22 23:17 Troponin I High Sens 5.4 pg/ml (0-14) 06/12/22 05:03 Total Protein 7.7 gm/dl (6.0-8.3) 06/11/22 23:17 Albumin 5.0 gm/dl (3.4-5.0) 06/11/22 23:17 Globulin 2.7 gm/dl (2.5-4.0) 06/11/22 23:17 Albumin/Globulin Ratio 1.9 (0.9-2) 06/11/22 23:17 Lipase 9 U/L (11-82) L 06/11/22 23:17 TSH 0.347 uIu/ml (0.300-4.500) 06/11/22 23:17 Urine Osmolality 320 mOsm/kg (500-800) L 06/12/22 01:36 Ur Random Sodium 100 mmol/L 06/12/22 01:36 Nasal Screen MRSA (PCR) Negative (Negative) 06/12/22 07:00 Urine Opiates Screen Pos (Neg) H 06/12/22 01:36 U Codeine Confrm GC/MS 590 ng/mL (<50) H 06/12/22 01:36 Ur Morphine (GC/MS) 105 ng/mL (<50) H 06/12/22 01:36 Ur Hydrocodone (GC/MS) NEGATIVE ng/mL (<50) 06/12/22 01:36 Ur Norhydrocodone NEGATIVE ng/mL (<50) 06/12/22 01:36 Ur Noroxycodone NEGATIVE ng/mL (<50) 06/12/22 01:36 Urine Oxycodone (GC/MS) NEGATIVE ng/mL (<50) 06/12/22 01:36 U Oxymorphone GC/MS NEGATIVE ng/mL (<50) 06/12/22 01:36 Ur Methadone, Qual Neg (Neg) 06/12/22 01:36 Ur Hydromorphone (GC/MS) 85 ng/mL (<50) H 06/12/22 01:36 Urine Barbiturates Neg (Neg) 06/12/22 01:36 Ur Phencyclidine (PCP) Neg (Neg) 06/12/22 01:36 U Amphetamin/Meth Scrn Neg (Neg) 06/12/22 01:36 MDMA (Ecstasy) Screen Neg (Neg) 06/12/22 01:36 U Benzodiazepines Scrn Neg (Neg) 06/12/22 01:36 Ur Cocaine Metabolite Neg (Neg) 06/12/22 01:36 U Marijuana (THC) Screen Neg (Neg) 06/12/22 01:36 Drug Screen Comment SEE NOTE 06/12/22 01:36 SARS-CoV-2, RNA, NAAT NEGATIVE (NEGATIVE) 06/12/22 01:14 Impressions Chest X-Ray 06/11/22 23:19 XR chest 1V portable CLINICAL HISTORY: Chest Pain. COMPARISON STUDY: 08/08/2020 TECHNIQUE: 1 view of the chest FINDINGS: Single frontal view of the chest demonstrates the cardiomediastinal silhouette to be within normal limits. The lungs are clear of alveolar opacities. There is no evidence for pleural effusion. There is no evidence for vascular congestion. There is no acute osseous pathology. IMPRESSION: 1. No acute cardiopulmonary disease. ACT 112: Negative or not required by law. Electronically signed by: Markel Beyer M.D. 06/12/2022 8:[address] 06/12/22 00:16 CT chest diagnostic w con CLINICAL HISTORY: substernal chest pain TECHNIQUE: Multidetector row helical CT of the chest was performed with intravenous contrast. Coronal and sagittal reformations were obtained. Automated dose lowering techniques and/or adjustment according to patient size were utilized for this exam. CT DOSE: 203.39 mGy.cm Comparison: Chest radiograph 06/11/2022 FINDINGS: Lungs and pleura: Atelectasis versus scarring is seen in the dependent portions of the lungs. Heart and pericardium: Heart size is normal. No pericardial effusion. Vessels: Unremarkable. Mediastinum and kady: Unremarkable. Chest wall and lower neck: Surgical clips are seen in the bilateral chest wall. Abdomen: Unremarkable. Bones: Degenerative changes in the thoracic spine. IMPRESSION: Unremarkable evaluation of the chest. ACT 112: Negative or not required by law. Electronically signed by: Jose Elias Regaan M.D. 06/12/2022 8:12 AM Hospital Course (1) Hyponatremia: Tracey Fajardo is a 56yo female with PMHx significant for depression/anxiety, h/o breast cancer (s/p bilateral mastectomy), post-mastectomy pain syndrome, migraines, HTN, and hypothyroidism who presented to [facility] ED on 06/12 for headaches, vomiting, and resultant burning chest pain. Hyponatremic with Na 119 in ED. Severe Hyponatremia Daily headaches x3 weeks followed by acute onset vomiting earlier in the evening and "brain fog" with Na 119 (previously normal last year), suspicious for acute development of severe hyponatremia with mild symptoms. Urine sodium and osmolality are both elevated, suggesting SIADH as etiology. Although patient is on several psychiatric medications that can cause SIADH, I suspect that Oxcarbazepine, which was started 6 weeks ago, is most likely culprit, however, its possible thiazide and SSRI may be contributing as well. - UDS positive for opiates (after Dilaudid/Fentanyl were given in ED) - s/p NSS 1L bolus - hypertonic saline 100cc bolus x2 - fluid restriction 1L - goal increase in Na 6-8mEq over 24 hours - held all home medications that can cause SIADH during stay: Oxcarbazepine, Duloxetine, HCTZ, Nabumetone, Vortioxetine - maintain seizure precautions - consulted Nephrology - appreciate recs - Na improved to 128 over first 11 hours, DDAVP for overcorrection; Na stabilized to near normal levels - On discharge will d/c oxcarbazepine as this was the most likely cause for SIADH. HCTZ may be contributing so will d/c this as well given her BPs stable during hospital stay. - Restart home duloxetine, nabumetone, and vortioxetine; although these can contribute to SIADH, she has been on these chronically and do provide her benefit - repeat BMP outpatient 06/17, f/u nephro next week - f/u PCP 1-2 weeks; would also f/u with her neurology for replacement of oxcarbazepine Hypokalemia/Hypochloremia, resolved K 2.5, Cl 81. Suspect these are acutely low due to recent vomiting. - K repleted - most recent K 4.3, Cl 101 Chest Pain, resolved Burning chest pain following vomiting - suspect pain is GI in nature 2/2 to vomiting. hsTroponin negative x2 and EKG without ST/T changes. Chest pain was unchanged with SL Nitro and resolved with Dilaudid/Fentanyl. - CXR without free air and CT chest unremarkable - Tylenol PRN for pain Post-mastectomy pain syndrome -d/c Oxcarbazepine -restart Nabumetone as above Depression/Anxiety -restart Duloxetine and Vorioxetine as stated above. -Continue home Clonazepam PRN and Hydroxyzine HTN -d/c HCTZ as stated above. -Continue home Amlodipine and Nebivolol Hypothyroidism -Last TSH .319 in 2019. -repeat wnl, Cont. home Synthroid Breast cancer, s/p bilateral mastectomy -continue home Letrozole (2) Hypokalemia: (3) Chest pain: (4) Depression: (5) Anxiety: (6) Post-mastectomy pain syndrome: (7) Migraine: (8) Hypertension: (9) Hypothyroidism: (10) H/O bilateral mastectomy: (11) Breast cancer: Total Time Total Time Spent Total Time Spent (In Minutes): 30 Discharge Plan Discharge Items Patient Disposition: Home - Self-Care Reason For Visit: HYPONATREMIA Discharge Diagnosis: Severe Hyponatremia Activity: Per Instructions section Non-emergency contact: Primary Care Provider Call non-emergency contact if: you have any medication questions and your symptoms worsen Follow-up/Referrals: Singh Jalloh MD [Physician] - Latasha Arredondo, PA-C [Physician [employer]] - Radha Toro DO [Primary Care Provider] - (within 1 wk ) Diet: Regular Addtl Attending Provider Instructions: You were admitted to the hospital for headache, nausea, vomiting due to severe hyponatremia (low sodium) found in the ED. We monitored your levels closely while giving you fluids. Your sodium levels did begin to improve but faster than we would have liked which prompted us to give you a medication called desmopressin to slow down the increase. Upon discharge, we made sure your sodium levels were appropriate and stable for discharge. We believe the most likely culprit for this presentation was your new medication oxcarbazepine which we would like to discontinue going forward. Alternative options can be discussed with your PCP. Another possible contributing medication is your hydrochlorothiazide (BP medication). In the hospital your BP was at goal without the hydrochlorothiazide, so we will discontinue this as well. At home I urge you to check your BP daily and create a BP log which you can take to your PCP for further evaluation. Goal BP <130/<80. Some other medications that have been known to contribute include your duloxetine, Nabumetone, and Vortioxetine. However, we will continue these for now as you have been on these for a long time and they are more of a necessity for you. Please follow up with your PCP within 1 wk. Would also recommend following up with your neurologist for alternative treatment options. Medications discontinued: -oxcarbazepine -hydrochlorothiazide Pending Studies at Discharge: No Stand-Alone Forms: [facility], Smoking Cessation Medications and DC Order Prescriptions: Continued clonazepam [Klonopin] 1 mg tablet 1 mg PO BID PRN (Reason: Anxiety) letrozole [Femara] 2.5 mg tablet 2.5 mg PO DAILY [id number] 50-325-40 mg capsule 1 cap PO Q4H PRN (Reason: Migraine Headache) amlodipine 5 mg tablet 5 mg PO DAILY hydroxyzine pamoate 25 mg capsule 25 mg PO HS nabumetone 750 mg tablet 750 mg PO BID acetaminophen-codeine 300-30 mg tablet 1 tab PO Q8H PRN (Reason: pain) Qty: 30 0RF levothyroxine 150 mcg tablet 150 mcg PO DAILY Qty: 90 3RF Bystolic 20 mg tablet 20 mg PO DAILY Qty: 30 0RF duloxetine [Cymbalta] 30 mg capsule,delayed release(DR/EC) 30 mg PO HS Qty: 90 1RF duloxetine [Cymbalta] 60 mg capsule,delayed release(DR/EC) 60 mg PO QAM 30 Days Qty: 30 5RF Trintellix 20 mg tablet 20 mg PO DAILY Nurtec ODT 75 mg tablet,disintegrating 75 mg PO ONCE PRN (Reason: migraine headache) Discontinued hydrochlorothiazide 25 mg tablet 25 mg PO DAILY Qty: 90 3RF oxcarbazepine 300 mg tablet 300 mg PO BID Qty: 60 5RF Discharge Orders: Discharge Order (Routine); Ordered 06/14/22 Ordered By: Martín Flynn Admission Data Admit Date/Time: 06/12/22 01:42 Attending Provider: Quincy Ng Admit Provider: Brandon Santoyo Primary Care Provider: Radha Toro Other Providers: Jaime Sosa Stephen M. Other Interventions: Discharge Summary Assessment (RN) Last Done: 06/14/22 10:40 Supervising Physician Co-Signing Physician Notes Attending attestation Pt seen and examined in concert with Dr. Flynn. In agreement with the documented findings as noted in the resident documentation with any exceptions or additions as noted here. Sitting up in bed at baseline subjectively. On examination, S1/S2 nl RRR no MCG. CTAB. Abd NT/ND BS+ve. CNII -XII grossly intact Hyponatremia - improved to 132-134 following correction. Restarted all medications with exception of HCTZ and oxcarbazepine. Nephrology to follow as outpatinet with BMP pending. Else see resident documentation as noted. Total attending time spent on this patient's case on the day of discharge: 35 minutes Resident Activity Tracking Resident Involvement: Resident Care Provided Care Provided: Adult Hospital Medicine
== END 2022-06-14 11:00 | disposition home or self-care (01) | DRG 644 ==
LOC: ED 23:02 → EDINP 06-12 01:42 → SUATTDRO 06-12 01:42 → 1E 06-12 06:19
DX: Z88.1 Allergy status to other antibiotic agents; G43.909 Migraine, unspecified, not intractable, without status migrainosus; R11.2 Nausea with vomiting, unspecified; F41.9 Anxiety disorder, unspecified; E87.8 Other disorders of electrolyte and fluid balance, not elsewhere classified; E87.6 Hypokalemia; I10 Essential (primary) hypertension; E22.2 Syndrome of inappropriate secretion of antidiuretic hormone; C50.919 Malignant neoplasm of unspecified site of unspecified female breast; E03.9 Hypothyroidism, unspecified; R07.9 Chest pain, unspecified; E87.1 Hypo-osmolality and hyponatremia; F32.A Depression, unspecified; Z79.890 Hormone replacement therapy; G89.28 Other chronic postprocedural pain

== ENCOUNTER 2024-03-15 13:59 | Inpatient (IN) ==
--- NOTE | 2024-03-15 14:21 | Emergency Department Note ---
Impression & Plan Pyelonephritis, Bacteremia due to Gram-negative bacteria ED Provider Note NAME: JENNIFER AGUILLON AGE: 58 SEX: F : 1965 ARRIVES VIA: Walk-In INFORMANT: Patient, ED PROVIDER(S): Prasanna Andrade DO CHIEF COMPLAINT: Fever HPI: The patient is a 58-year-old female who presented to the emergency department after she was called by our department to return. The patient was seen last evening. She has had urinary symptoms for approximately 1 week. She was not seen prior to last evening when she was seen in our facility and diagnosed with pyelonephritis. The patient was given a dose of Rocephin in the emergency department at approximately 11:30 PM last night. She has gram- negative bacilli in her blood culture. She was told to come back to the emergency department for further evaluation. The patient states she still feels off. She denies having any vomiting but she still had low-grade fever and back pain. She denies having any syncope. She denies having any dark or tarry stools. ROS: See above HPI for pertinent positives & negatives. A total of 10 systems reviewed and were otherwise negative. PAST MEDICAL HISTORY: See Below PAST SURGICAL HISTORY: See Below FAMILY HISTORY: See Below SOCIAL HISTORY: See Below HOME MEDICATIONS: See Below ALLERGIES: See Below VITALS: See Below PHYSICAL EXAMINATION: GENERAL: Patient is awake alert in no acute distress patient is resting comfortably and showing no signs of anxiety EYES: The conjunctivae are clear. The pupils are round and reactive. EARS, NOSE, MOUTH AND THROAT: The nose is without any evidence of any deformity. Mucous membranes are moist. Tongue is midline. NECK: The neck is nontender and supple. RESPIRATORY: Normal respiratory effort is noted there is no evidence of wheezing rhonchi or rales CARDIOVASCULAR: Regular rate and rhythm noted there no murmurs rubs or gallops normal S1 normal S2. GASTROINTESTINAL: The abdomen is soft. Abdomen is nontender. BACK: There is no midline tenderness. There is no CVA tenderness to percussion. MUSCULOSKELETAL/EXTREMITIES: There is no evidence of gross deformity full range of motion is noted in the hips and shoulders. SKIN: There is no obvious evidence of any rash. There are no petechiae, pallor or cyanosis noted. NEUROLOGIC: Patient is awake alert and oriented x3. Gait was steady. MEDICAL DECISION MAKING: The patient is a 58-year-old female who presented to the emergency department for an evaluation of pyelonephritis. The patient was recently diagnosed with pyelonephritis. She was treated with IV antibiotics last evening at 11:30 PM. She was called back to the emergency department because she had a positive blood culture for gram-negative bacilli. The patient was treated with IV fluids in the emergency department. She is not due for another dose of IV antibiotics. I discussed the patient's laboratory results with her. I discussed her condition with the on-call [facility]. Overall clinically she does look significantly improved but given that she has gram-negative bacteremia she may require inpatient treatment. Triage Nursing notes reviewed. Prior medical records reviewed Vital Signs: reviewed and remarkable for no significant abnormalities Differential diagnosis: Renal colic, UTI, appendicitis, diverticulitis, mesenteric ischemia, aortic pathology, infections, inflammatory bowel disease, PUD, biliary pathology, as well as other pathologies. ER treatment provided: See below Diagnostics interpreted by me: ECG: none Cardiac Monitoring: An order was placed for continuous cardiac monitoring. The monitor shows a rate of 64 bpm with sinus rhythm. Laboratory studies: As stated above and show below. Imaging studies: See below. Consultation(s): I discussed this case with Dr. Oscar who is on-call for the [facility]. 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 Previous section Hx of tonsillectomy H/O left knee surgery H/O bilateral mastectomy Family History Mother Depression Cancer Hypertension Father Hypertension Hypotension Sister Anxiety Grandmother (Maternal) Breast cancer Osteoporosis Aunt Breast cancer 2 maternal aunts Denies family history of Ovarian cancer Colorectal cancer Social History Smoking Status: Never smoker Second Hand Exposure: No; Do You Dip or Chew Tobacco: No; Hx Alcohol Use: Yes Alcohol type: wine Hx Substance Use: No Preferred Language: Citizen Of [place] Communication Ability: Effective Visual Impairment: No Limitations Hearing Ability: Normal Contract Manager Required: No Beliefs That Will Affect Care: None marital status: Current Living Situation: Spouse current occupational status: employed 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, 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 Other Information That Helps Us Care for You: No Feels Safe at Home: Yes Safety Concerns: Feels Safe At This Time Assistive Devices: None Allergies Allergies Allergy/AdvReac Type Severity Reaction Status Date / Time chlorhexidine Allergy Intermediate Hives Verified 03/15/24 15:33 clindamycin Allergy Intermediate hives Verified 03/15/24 15:33 erythromycin base AdvReac Intermediate Vomiting Verified 03/15/24 15:33 [From E-Mycin] lisinopril AdvReac Intermediate heart Verified 03/15/24 15:33 palpatations Home Meds Home Medications Medication Instructions Recorded Confirmed atorvastatin 10 mg tablet 10 mg PO DAILY 03/19/23 03/15/24 amlodipine 10 mg tablet 10 mg PO DAILY 10/28/23 03/15/24 hydroxyzine pamoate 25 mg capsule 25 mg PO HS PRN Sleep 12/18/23 03/15/24 celecoxib 200 mg capsule 200 mg PO DAILY 02/16/24 03/15/24 oxcarbazepine 150 mg tablet 150 mg PO QID PRN NEUROPATHY FLARES 03/15/24 03/15/24 rimegepant 75 mg disintegrating 75 mg PO DIRECTED PRN migraine 03/15/24 03/15/24 tablet (Nurtec ODT) headache Previous Rx's Medication Instructions Recorded nebivolol 20 mg tablet (Bystolic) 20 mg PO DAILY #30 tabs 07/25/20 acetaminophen 300 mg-codeine 30 mg 1 tab PO Q8H PRN pain #30 tabs 04/15/22 tablet levothyroxine 150 mcg tablet 150 mcg PO DAILY #90 tabs 12/03/23 duloxetine 60 mg capsule,delayed 60 mg PO BID #180 caps 12/18/23 release (Cymbalta) cefdinir 300 mg capsule 300 mg PO BID 7 days #14 caps 03/14/24 phenazopyridine 200 mg tablet 200 mg PO TID PRN pain 6 doses #6 03/14/24 (Pyridium) tabs Results & Data (ED) Vital Signs Vital Signs - 24 hr 03/15/24 14:04 03/15/24 14:20 Temperature 36.6 C Temperature Source Temporal Artery Scan Pulse Rate 73 Pulse Rate [Left Finger] 64 Respiratory Rate 14 16 Respiratory Effort / Characteristics Non-Labored Spontaneous Non-Labored Spontaneous Respiratory Depth Normal Normal Respiratory Pattern Regular Blood Pressure 124/81 Blood Pressure [Right Arm] 112/69 Blood Pressure Mean 95 Blood Pressure Mean [Right Arm] 83 Blood Pressure Position [Right Arm] Semi-fowlers Pulse Oximetry 96 96 Oxygen Delivery Method Room Air Room Air Sepsis New/Unexplained Change in Mental Status No Sepsis Action Taken by Nursing No Action Required Home Medications Current Medication List: was personally reviewed by me Laboratory Data Attestation: I reviewed the patient's lab results. 03/15/24 14:13 03/15/24 14:13 Lab Results 03/15/24 Range/Units 14:13 WBC 10.36 (4.8-10.8) K/ul RBC 4.17 L (4.20-5.40) M/uL Hgb 12.8 (12.0-16.0) g/dl Hct 38.5 (37.0-47.0) % MCV 92.3 (80.0-100.0) fL MCH 30.7 (25.0-34.0) pg MCHC 33.2 (32.0-36.0) g/dL RDW Std Deviation 41.9 (36.4-46.3) fL RDW Coeff of Gonzalo 12.4 (11.5-14.5) % Plt Count 265 (130-400) K/uL MPV 8.8 L (9.4-12.4) fL Immature Gran % (Auto) 0.4 % Neut % (Auto) 68.9 % Lymph % (Auto) 16.8 % [place]morton % (Auto) 11.0 % Eos % (Auto) 2.5 % Baso % (Auto) 0.4 % Neut # (Auto) 7.14 H (1.40-6.50) K/uL Lymph # (Auto) 1.74 (1.20-3.40) K/uL [place]morton # (Auto) 1.14 H (0.11-0.59) K/uL Eos # (Auto) 0.26 (0.00-0.50) K/uL Baso # (Auto) 0.04 (0.00-0.20) K/uL Immature Gran # (Auto) 0.04 (0.01-0.20) K/uL Sodium 135 L (136-145) mmol/L Potassium 4.0 (3.5-5.1) mmol/L Chloride 102 (98-107) mmol/L Carbon Dioxide 28 (21-32) mmol/L Anion Gap 5 (3-11) BUN 12 (6-23) mg/dl Creatinine 0.74 (0.6-1.2) mg/dl Est Cr Clr Drug Dosing 82.7 ml/min Est GFR ( Amer) 104.2 ml/min Est GFR (Non-Af Amer) 89.9 ml/min BUN/Creatinine Ratio 16.2 (10-20) Glucose 98 (70-99(Fasting)) mg/dl Lactate 0.7 (0.4-2.0) mmol/L Calcium 9.9 (8.6-10.3) mg/dl Total Bilirubin 1.0 D (0.2-1.0) mg/dl AST 24 (13-39) U/L ALT 20 (7-52) U/L Alkaline Phosphatase 77 (34-104) U/L C-Reactive Protein 9.60 H (0-0.5) mg/dl Total Protein 7.0 (6.0-8.3) gm/dl Albumin 4.4 (3.4-5.0) gm/dl Globulin 2.6 (2.5-4.0) gm/dl Albumin/Globulin Ratio 1.7 (0.9-2) Procalcitonin 0.49 (0-0.5) ng/ml Administered Medications Atorvastatin Calcium (Atorvastatin 10 Mg Tab) 10 mg PO HS ROXANNE Stop: 04/14/24 20:59 Last Admin: 03/15/24 19:55 Dose: 10 mg Documented By: RES Duloxetine HCl (Duloxetine Hcl 60 Mg Cap) 60 mg PO BID ROXANNE Stop: 04/14/24 20:59 Last Admin: 03/15/24 19:37 Dose: 60 mg Documented By: BEV Enoxaparin Sodium (Enoxaparin Inj 40 Mg/0.4 Ml Syr) 40 mg SQ Q24H ROXANNE Stop: 04/14/24 17:59 Last Admin: 03/15/24 18:16 Dose: Not Given Documented By: AV Parenteral Electrolytes (Plasma-Lyte A Ph 7.4) 1,000 mls @ 125 mls/hr IV .Q8H ROXANNE Stop: 03/15/24 23:59 Last Infusion: 03/15/24 18:47 Dose: 125 mls/hr Documented By: Infusion: 03/15/24 18:11 Dose: 500 mls/hr Documented By: Admin: 03/15/24 18:11 Dose: 125 mls/hr Documented By: AV Discontinued Medications Sodium Chloride (Nss) 1,000 mls @ 999 mls/hr IV .Q1H1M ONE Stop: 03/15/24 15:14 Last Infusion: 03/15/24 16:01 Dose: Infused Documented By: Admin: 03/15/24 14:54 Dose: 999 mls/hr Documented By: LMM Parenteral Electrolytes (Plasma-Lyte A Ph 7.4) 1,000 mls @ 999 mls/hr IV .Q1H1M ONE Stop: 03/15/24 17:00 Last Infusion: 03/15/24 17:24 Dose: Infused Documented By: Admin: 03/15/24 16:15 Dose: 999 mls/hr Documented By: LMM Imaging Data Attestation: I personally reviewed and interpreted this imaging study as follows: My Impression: 1 view chest x-ray was obtained in the emergency department. My interpretation is no free air or definite infiltrate, final report below. Radiologist's Impression: Chest X-Ray 03/15/24 14:07 XR chest 1V portable HISTORY: Sepsis COMPARISON: Chest 03/14/2024. FINDINGS: No pneumothorax. No pleural effusions. There are surgical clips seen within the lower chest wall. Punctate calcified granuloma within the right upper lobe. No evidence for pulmonary edema. No acute fractures. Mild interstitial thickening at the left lung base. This could be due to vascular crowding from the low lung volumes. A low-grade pneumonitis is considered less likely but not entirely excluded. IMPRESSION: Mild interstitial thickening at the left lung base. This could be due to vascular crowding from the low lung volumes. A low-grade pneumonitis is considered less likely but not entirely excluded. ACT 112: Negative or not required by law. Electronically signed by: Dakota Myers M.D. 03/15/2024 2:40 PM Discharge Plan Visit Data Chief Complaint: Infection Stated Complaint: BLOOD INFECTION ED Provider: Prasanna Andrade Discharge Problem: Pyelonephritis, Bacteremia due to Gram-negative bacteria Patient Disposition: Admitted As Inpatient Discharge Instructions Interventions: ED Discharge Assessment Last Done: 03/15/24 18:18
[2024-03-15 14:37] LABS: Basophils # (auto) 0.04 K/uL (0.00-0.20); Basophils % (auto) 0.4 %; Eosinophils # (auto) 0.26 K/uL (0.00-0.50); Eosinophils % (auto) 2.5 %; Hematocrit (blood only) 38.5 % (37.0-47.0); Hemoglobin 12.8 g/dl (12.0-16.0); Immature Granulocytes # (auto) 0.04 K/uL (0.01-0.20); Immature Granulocytes % (auto) 0.4 %; Lymphocytes # (auto) 1.74 K/uL (1.20-3.40); Lymphocytes % (auto) 16.8 %; Mean Corpuscular Hemoglobin 30.7 pg (25.0-34.0); Mean Corpuscular Hgb Conc 33.2 g/dL (32.0-36.0); Mean Corpuscular Volume 92.3 fL (80.0-100.0); Mean Platelet Volume 8.8 fL (9.4-12.4); Monocytes # (auto) 1.14 K/uL (0.11-0.59); Neutrophils # (auto) 7.14 K/uL (1.40-6.50); Neutrophils % (auto) 68.9 %; Platelet Count 265 K/uL (130-400); RDW Coefficient of Variation 12.4 % (11.5-14.5); RDW Standard Deviation 41.9 fL (36.4-46.3); Red Blood Count 4.17 M/uL (4.20-5.40); White Blood Count 10.36 K/ul (4.8-10.8)
--- NOTE | 2024-03-15 14:42 | XRay Report ---
XR chest 1V portable HISTORY: Sepsis COMPARISON: Chest 03/14/2024. FINDINGS: No pneumothorax. No pleural effusions. There are surgical clips seen within the lower chest wall. Punctate calcified granuloma within the right upper lobe. No evidence for pulmonary edema. No acute fractures. Mild interstitial thickening at the left lung base. This could be due to vascular cr owding from the low lung volumes. A low-grade pneumonitis is considered less likely but not entirely excluded. IMPRESSION: Mild interstitial thickening at the left lung base. This could be due to vascular crowding from the l ow lung volumes. A low-grade pneumonitis is considered less likely but not entirely excluded. ACT 112: Negative or not required by law. Electronically signed by: Dakota Myers M.D. 03/15/2024 2:40 PM
[2024-03-15] MEDS: SODIUM CHLORIDE 0.9% 1,000 ML IV ONE (14:54)
[2024-03-15 15:15] LABS: Albumin Globulin Ratio 1.7 (0.9-2); Albumin Level 4.4 gm/dl (3.4-5.0); BUN Creatinine Ratio 16.2 (10-20); C Reactive Protein 9.6 mg/dl (0-0.5); Calcium 9.9 mg/dl (8.6-10.3); Creatinine Clr Calc Pharmacy 82.7 ml/min; Est GFR (African American) 104.2 ml/min; Est GFR (Non-African American) 89.9 ml/min; Globulin 2.6 gm/dl (2.5-4.0)
--- NOTE | 2024-03-15 15:39 | History & Physical Report ---
Date of Service March 15, 2024 Assessment & Plan (1) Pyelonephritis: Plan: Gram-negative bacteremia, suspected urinary source No leukocytosis Patient is not toxic/septic on admission CRP 9.6 UA previously / Blood cultures drawn 03/14 are 4/4 positive for gram-negative bacilli. These do not test positive for additional resistance by PCR. Patient admitted on Rocephin pending speciation CTA/P from 03/14 reviewed. Mild right hydroureter consistent with ureteritis, no evidence of obstruction/stones noted at that time. No STEPH, trend BMP dailyinitial BP is normotensive (2) Hypertension: Plan: Hypertension Held for borderline hypotension (3) Hypothyroidism: Plan: Hyperlipidemia Continue home meds Plan Anxiety/depression: Continue home meds Prophylaxis: Lovenox Disposition: Medical/surgical CODE STATUS: Full code Diet: Regular History of Present Illness Primary Care Provider: Radha Toro DO Tracey is a 58-year-old female with past medical history of complex injury, anxiety/depression, hyperlipidemia, hypothyroidism, cognitive dysfunction, thoracic facet syndrome who was recently seen in the ER for fever, chills, body aches after a colleague of her 's is positive for meningitis and she was concerned angitis. She was found to have a UTI/pyelo-. Patient had polyurea at that time. Patient felt comfortable discharge on oral antibiotics. Unfortunately/were blood cultures returned positive for gram-negative bacteria and she was recommended for admission for monitoring and pending final speciation's "Wendy "is seen at the bedside. She reports that she has had some chills and has felt feverish overnight. Does have some right flank pain unchanged for the last 24 hours. Endorses polyuria. Denies chest pain, chest pressure, shortness of breath, difficulty breathing, lightheadedness, dizziness. Did take her medications this morning. No abdominal pain. No nausea/vomiting. Has had decreased p.o. intake in the last 2 days due to feeling poorly. She is not lightheaded or dizzy at time of assessment, although is hypotensive systolic at the bedside. Denies tobacco use. Alcohol 3-5 nights per week, no history of withdrawal symptoms or dependence, reports she can go several days without: No withdrawal symptoms. Full code. No antibiotic allergies. No additional questions at bedside Allergies Allergy/AdvReac Type Severity Reaction Status Date / Time chlorhexidine Allergy Intermediate Hives Verified 03/15/24 15:33 clindamycin Allergy Intermediate hives Verified 03/15/24 15:33 erythromycin base AdvReac Intermediate Vomiting Verified 03/15/24 15:33 [From E-Mycin] lisinopril AdvReac Intermediate heart Verified 03/15/24 15:33 palpatations Home Medications Medication Instructions Recorded Confirmed Type nebivolol 20 mg tablet (Bystolic) 20 mg PO DAILY #30 tabs 07/25/20 03/15/24 Rx acetaminophen 300 mg-codeine 30 mg 1 tab PO Q8H PRN pain #30 tabs 04/15/22 03/15/24 Rx tablet atorvastatin 10 mg tablet 10 mg PO DAILY 03/19/23 03/15/24 History amlodipine 10 mg tablet 10 mg PO DAILY 10/28/23 03/15/24 History levothyroxine 150 mcg tablet 150 mcg PO DAILY #90 tabs 12/03/23 03/15/24 Rx duloxetine 60 mg capsule,delayed 60 mg PO BID #180 caps 12/18/23 03/15/24 Rx release (Cymbalta) hydroxyzine pamoate 25 mg capsule 25 mg PO HS PRN Sleep 12/18/23 03/15/24 History celecoxib 200 mg capsule 200 mg PO DAILY 02/16/24 03/15/24 History cefdinir 300 mg capsule 300 mg PO BID 7 days #14 caps 03/14/24 03/15/24 Rx phenazopyridine 200 mg tablet 200 mg PO TID PRN pain 6 doses #6 03/14/24 03/15/24 Rx (Pyridium) tabs oxcarbazepine 150 mg tablet 150 mg PO QID PRN NEUROPATHY FLARES 03/15/24 03/15/24 History rimegepant 75 mg disintegrating 75 mg PO DIRECTED PRN migraine 03/15/24 03/15/24 History tablet (Nurtec ODT) headache Past Med/Surg History Medical History Thoracic facet syndrome Hypokalemia Post-mastectomy pain syndrome Migraine Intercostal neuropathy Hypothyroidism Hypertension Cervical radiculopathy Carpal tunnel syndrome, bilateral Brachial plexus injury, left Myofascial pain Anxiety Depression Breast cancer Surgical History H/O laparoscopy for endometriosis H/O total hysterectomy with bilateral salpingo-oophorectomy (BSO) (2018) 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 Previous section Hx of tonsillectomy H/O left knee surgery H/O bilateral mastectomy Family History Mother Depression Cancer Hypertension Father Hypertension Hypotension Sister Anxiety Grandmother (Maternal) Breast cancer Osteoporosis Aunt Breast cancer 2 maternal aunts Denies family history of Ovarian cancer Colorectal cancer Social History Smoking Status: Never smoker Hx Alcohol Use: Yes Alcohol type: wine Hx Substance Use: No Preferred Language: [place]ic Visual Impairment: No Limitations Hearing Ability: Normal Beliefs That Will Affect Care: None marital status: Current Living Situation: Spouse current occupational status: employed 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 NAD. Cooperative. HEENT: Atraumatic, normocephalic. Pulm: CTAB A&P. -wheezes, -rales, -rhonchi. Symmetrical chest rise. No increased work of breathing. No respiratory distress. Cardiac: RRR, -mrg. Radial pulses intact and symmetrical. Abdominal: +R flank TTP. Otherwise Nontender, nondistended, soft. BS present. Ext: warm, dry Results & Data Results & Data Vital Signs (Past 12 Hours) Vital Signs Temp Pulse Pulse Resp BP BP Pulse Ox 03/15/24 14:20 64 16 112/69 96 03/15/24 14:04 36.6 C 73 14 124/81 96 O2 Del Method 03/15/24 14:20 Room Air 03/15/24 14:04 Room Air PG Care Time/CCT Total # of Minutes Spent Total Time Spent with Patient: Total time spent is greater than 50% in coordination of care (as documented) at patient's floor/unit and/or counseling patient: Coding Level of Care Code 47219 INT INP/OBS CARE 3/75MIN Diagnoses Pyelonephritis N12 Hypertension I10 Hypothyroidism E03.9
[2024-03-15] MEDS: PLASMA-LYTE A 1,000 ML IV ONE (16:15)
[2024-03-15 16:17] LABS: Appearance Urine Clear (Clear); Bacteria Urine Automated None Seen (None Seen); Bilirubin Urine Negative (Negative); Blood Urine Negative (Negative); Cast Urine Automated 0-2 /lpf (0-2); Color Urine Yellow; Epithelial Cell Urine Auto 0-2 /hpf (0-2); Glucose Urine UA Negative (Negative); Ketones Urine Negative (Negative); Leukocyte Esterase Urine 1+ (Negative); Nitrite Urine Negative (Negative); Protein Urine Negative (Negative); RBC Urine Automated 0-2 /hpf (0-2); Specific Gravity Urine 1.006 (1.000-1.030); Urobilinogen Urine Negative (Negative); pH Urine 6.5 (4.5-7.5)
[2024-03-15] MEDS ORDERED: hydrOXYzine HCl 25 MG TAB PO PRN (17:42)
[2024-03-15] MEDS: PLASMA-LYTE A 1,000 ML IV SCH (18:11)
[2024-03-15] MEDS: ENOXAPARIN INJ 40 MG/0.4 ML SYR SQ SCH (18:16)
[2024-03-15] MEDS: DULoxetine HCL 60 MG CAP PO SCH (19:37)
[2024-03-15] MEDS ORDERED: Nursing to Pharmacy Communication SCH (19:45)
[2024-03-15] MEDS: ATORVASTATIN 10 MG TAB PO SCH (19:55)
[2024-03-15] MEDS ORDERED: cefTRIAXone SODIUM 2,000 MG in DEXTROSE 5 % MINI-B 50 ML IV SCH (23:00)
[2024-03-15] MEDS: cefTRIAXone SODIUM 2,000 MG in DEXTROSE 5 % MINI-B 50 ML IV SCH (23:06)
[2024-03-16] MEDS: ACETAMINOPHEN W/CODEINE #3 1 TAB PO PRN (02:24)
[2024-03-16] MEDS: ACETAMINOPHEN W/CODEINE #3 1 TAB PO ONE (03:59)
[2024-03-16] MEDS: LEVOTHYROXINE SODIUM 150 MCG TABLET PO SCH (05:52)
[2024-03-16 07:14] LABS: Basophils # (auto) 0.03 K/uL (0.00-0.20); Basophils % (auto) 0.4 %; Eosinophils # (auto) 0.39 K/uL (0.00-0.50); Eosinophils % (auto) 5.4 %; Hematocrit (blood only) 35.3 % (37.0-47.0); Hemoglobin 12.1 g/dl (12.0-16.0); Immature Granulocytes # (auto) 0.02 K/uL (0.01-0.20); Immature Granulocytes % (auto) 0.3 %; Lymphocytes # (auto) 1.79 K/uL (1.20-3.40); Lymphocytes % (auto) 24.7 %; Mean Corpuscular Hemoglobin 31.3 pg (25.0-34.0); Mean Corpuscular Hgb Conc 34.3 g/dL (32.0-36.0); Mean Corpuscular Volume 91.5 fL (80.0-100.0); Mean Platelet Volume 9.3 fL (9.4-12.4); Monocytes # (auto) 1.21 K/uL (0.11-0.59); Monocytes % (auto) 16.7 %; Neutrophils # (auto) 3.81 K/uL (1.40-6.50); Neutrophils % (auto) 52.5 %; Platelet Count 236 K/uL (130-400); RDW Coefficient of Variation 12.4 % (11.5-14.5); RDW Standard Deviation 41.5 fL (36.4-46.3); Red Blood Count 3.86 M/uL (4.20-5.40); White Blood Count 7.25 K/ul (4.8-10.8)
[2024-03-16 07:40] LABS: BUN Creatinine Ratio 12.3 (10-20); Calcium 9.2 mg/dl (8.6-10.3); Creatinine Clr Calc Pharmacy 93.9 ml/min; Est GFR (African American) 114.2 ml/min; Est GFR (Non-African American) 98.6 ml/min; Potassium 3.8 mmol/L (3.5-5.1)
[2024-03-16] MEDS: METOPROLOL TARTRATE 50 MG TAB PO SCH (08:00)
[2024-03-16] MEDS ORDERED: ATORVASTATIN 10 MG TAB PO SCH (09:00)
--- NOTE | 2024-03-16 10:34 | Hospitalist Progress Note ---
Date of Service March 16, 2024 Assessment & Plan (1) Bacteremia due to Gram-negative bacteria: (2) Pyelonephritis: (3) Hypothyroidism: (4) Hypertension: Plan Ms. Fajardo is a 58 y/o female who was admitted due to gram negative bacteremia secondary to right-sided pyelonephritis. Gram-negative bacteremia, likely urinary source No leukocytosis (WBC of ~7) UA previously / Blood cultures drawn 03/14 are 4/4 positive for gram-negative bacilli. CTA/P from 03/14 reviewed. Mild right hydroureter consistent with ureteritis, no evidence of obstruction/stones noted at that time. Patient with improvement after abx Will continue Rocephin until sensitivities return Hypertension - Home meds held for borderline hypotension HLD - Continue home meds Anxiety - Continue home meds Hypothyroidism - Continue home meds - Advise repeat TSH level as last one in EMR is from 12/2023 and at that time was 85 Prophylaxis: Lovenox Disposition: Discharge on PO antibiotics for total of 10-14 days (pending sensitivities) CODE STATUS: Full code Diet: Regular Admission and Anticipated Discharge Date Admission Date: March 15, 2024 Supervising Physician Co-Signing Physician Notes Attending attestation Pt seen and examined in concert with Dr. Mcnamara. In agreement with the documented findings as noted in the resident documentation with any exceptions or additions as noted here. minimal right flank pain which continues to improve without urinary symptoms at time of exam. On examination, S1/S2 nl RRR no MCG. CTAB. Gram-negative bacteremia w/ ureteritis - continue rocephin therapy and follow C/S Else see resident documentation as noted. Subjective Ms. Fajardo is a 58 y/o female who came to the ED due to several days of chills, feeling feverish, weakness, having headaches, and myalgias. On arrival, they did labs and fang blood cultures, then discharged her with PCP follow up. However, when her blood cultures came back with gram negative bacteria, she was called and asked to return for further evaluation and IV abx. She was evaluated today and found to be AAOx3, afebrile, and in NAD. She refers feeling much better compared to a few days ago save for some persistent right flank pain. Denies fevers, chills, N/V/D, chest pain, SOB, or any other symptom. Review of Systems Review of Systems: As per HPI. Physical Exam Physical Exam: General: AAOx3, afebrile, NAD CV: RRR, no r/m/g Pulm: CTA bilaterally, no resp distress GI: no suprapubic tenderness, no distension, soft, tenderness in right flank Extr: no swelling in b/l LE, no calf tenderness Results & Data Results & Data Vital Signs (Past 12 Hours) Vital Signs Temp Pulse Resp BP Pulse Ox O2 Del Method 03/16/24 07:41 36.7 C 60 16 98/62 L 95 Room Air 03/15/24 23:56 113/75 Resident Activity Tracking Resident Involvement: Resident Care Provided Care Provided: Adult Hospital Medicine
[2024-03-17 06:30] LABS: Basophils # (auto) 0.04 K/uL (0.00-0.20); Basophils % (auto) 0.7 %; Eosinophils # (auto) 0.42 K/uL (0.00-0.50); Eosinophils % (auto) 7.5 %; Hematocrit (blood only) 40.4 % (37.0-47.0); Hemoglobin 13.2 g/dl (12.0-16.0); Immature Granulocytes # (auto) 0.03 K/uL (0.01-0.20); Immature Granulocytes % (auto) 0.5 %; Lymphocytes # (auto) 1.72 K/uL (1.20-3.40); Lymphocytes % (auto) 30.7 %; Mean Corpuscular Hemoglobin 31.1 pg (25.0-34.0); Mean Corpuscular Hgb Conc 32.7 g/dL (32.0-36.0); Mean Corpuscular Volume 95.1 fL (80.0-100.0); Mean Platelet Volume 9.1 fL (9.4-12.4); Monocytes # (auto) 0.84 K/uL (0.11-0.59); Neutrophils # (auto) 2.55 K/uL (1.40-6.50); Neutrophils % (auto) 45.6 %; Platelet Count 299 K/uL (130-400); RDW Coefficient of Variation 12.2 % (11.5-14.5); RDW Standard Deviation 42.5 fL (36.4-46.3); Red Blood Count 4.25 M/uL (4.20-5.40)
[2024-03-17 06:42] LABS: BUN Creatinine Ratio 15.1 (10-20); Calcium 9.8 mg/dl (8.6-10.3); Creatinine Clr Calc Pharmacy 83.7 ml/min; Est GFR (Non-African American) 91.4 ml/min; Potassium 3.8 mmol/L (3.5-5.1)
--- NOTE | 2024-03-17 12:31 | Discharge Summary ---
Date of Service March 17, 2024 Admission HPI Per Admitting Provider Tracey is a 58-year-old female with past medical history of complex injury, anxiety/depression, hyperlipidemia, hypothyroidism, cognitive dysfunction, thoracic facet syndrome who was recently seen in the ER for fever, chills, body aches after a colleague of her 's is positive for meningitis and she was concerned angitis. She was found to have a UTI/pyelo-. Patient had polyurea at that time. Patient felt comfortable discharge on oral antibiotics. Unfortunately/were blood cultures returned positive for gram-negative bacteria and she was recommended for admission for monitoring and pending final specia tion's "Wendy "is seen at the bedside. She reports that she has had some chills and has felt feverish overnight. Does have some right flank pain unchanged for the last 24 hours. Endorses polyuria. Denies chest pain, chest pressure, shortness of breath, difficulty breathing, lightheadedness, dizziness. Did take her medications this morning. No abdominal pain. No nausea/vomiting. Has had decreased p.o. intake in the last 2 days due to feeling poorly. She is not lightheaded or dizzy at time of assessment, although is hypotensive systolic at the bedside. Denies tobacco use. Alcohol 3-5 nights per week, no history of withdrawal symptoms or dependence, reports she can go several days without: No withdrawal symptoms. Full code. No antibiotic allergies. No additional questions at bedside Admission Exam Per Admitting Provider General: A&Ox3. NAD. Cooperative. HEENT: Atraumatic, normocephalic. Pulm: CTAB A&P. -wheezes, -rales, -rhonchi. Symmetrical chest rise. No increased work of breathing. No respiratory distress. Cardiac: RRR, -mrg. Radial pulses intact and symmetrical. Abdominal: +R flank TTP. Otherwise Nontender, nondistended, soft. BS present. Ext: warm, dry Principal Diagnosis pyelonephritis, gram negative bacteremia Discharge Exam General: AAOx3, afebrile, NAD CV: RRR, no r/m/g Pulm: CTA bilaterally, no resp distress GI: no suprapubic tenderness, no distension, soft, no tenderness in bilateral flanks Extr: no swelling in b/l LE, no calf tenderness Discharge Data Allergies Allergy/AdvReac Type Severity Reaction Status Date / Time chlorhexidine Allergy Intermediate Hives Verified 03/15/24 15:33 clindamycin Allergy Intermediate hives Verified 03/15/24 15:33 erythromycin base AdvReac Intermediate Vomiting Verified 03/15/24 15:33 [From E-Mycin] lisinopril AdvReac Intermediate heart Verified 03/15/24 15:33 palpatations Consultations 03/15/24 15:12 ED Decision to Admit Stat Hospital Course (1) Bacteremia due to Gram-negative bacteria: (2) Pyelonephritis: (3) Hypothyroidism: (4) Hypertension: Plan Ms. Fajardo is a 58 y/o female who was admitted due to gram negative bacteremia secondary to right-sided pyelonephritis. Gram-negative bacteremia, likely urinary source (Acute, stable) No leukocytosis UA previously Blood cultures drawn 03/14 are 4/ positive for E.coli that is only resistant to Ampicillin and Ampi/Sulbactam CTA/P from 03/14 reviewed. Mild right hydroureter consistent with ureteritis, no evidence of obstruction/stones noted at that time. Patient clinically improved with IV Ceftriaxone Will d/h patient with 7 more days of Cefdinir 300mg PO bid to complete 10 days of therapy. Hypertension (Chronic, stable) - May continue home meds after discharge HLD (Chronic, stable) - Continue home meds Anxiety (Chronic, stable) - Continue home meds Hypothyroidism (Chronic, stable) - Continue home meds - Advise repeat TSH level as last one in EMR is from 12/2023 and at that time was 85 Patient found stable and fit for discharge today. Total Time Total Time Spent Total Time Spent (In Minutes): As per attending attestation Discharge Plan Discharge Items Patient Disposition: Home - Self-Care Reason For Visit: PYELO,GNBACTEREMIA Discharge Diagnosis: Pyelonephritis, Gram negative bacteremia Activity: Per Instructions section Non-emergency contact: Primary Care Provider Call non-emergency contact if: your symptoms worsen and your temperature is above 101 Follow-up/Referrals: Radha Toro DO [Primary Care Provider] - 03/30/24 10:50 am Diet: Regular Addtl Attending Provider Instructions: You were admitted due to an infection of your kidney that spread to your blood. For this reason, you were treated with intravenous antibiotics until your blood cultures came back with the offending bacteria and what antibiotic it is sensitive to so we could be sure to change your intravenous antibiotic to an oral alternative that would provide good coverage. We got these results back and so we will be changing your antibiotic today to Cefdinir 300mg to take by mouth two times a day for 7 days to complete a total of 10 days of therapy. Otherwise, we find you stable to be discharged today. A discharge summary will be sent to your primary care physician to ensure continuity of care. Please bring this discharge summary with you to your next office appointment so that your provider can review it at that time. Follow-up appointments: Make a follow-up appointment with your PCP within the next week. It is very important that you follow up with them shortly after discharge from the hospital. Keep all your follow-up appointments as already scheduled. If you cannot make an appointment, notify your provider. Medications: Your medication list has been reviewed and reconciled upon discharge to ensure accuracy and continuity of care. An updated list of all your medications is included with your hospital discharge paperwork. Please review this list closely, and make note of any changes. If you have any issues filling these prescriptions, please call [phone] and ask to leave a message for Dr. Mcnamara. Take your medications as instructed; do not skip a dose of your medicines. Make sure all of your doctors know every medicine you are taking (including diae-[id number] medicines, vitamins, and supplements). Call your primary care provider before taking any new medicines (including over- the-counter medicines, vitamins, and supplements), because some of these may interact with your current medications, or may make your symptoms worse. Tell your primary care provider if you cannot afford your medications. CONTACT YOUR PRIMARY CARE PROVIDER if you experience any of the following: Worsening of symptoms Fever, chills, or fatigue Difficulty following your treatment plan, or difficulty taking medications CALL 911 OR GO TO THE EMERGENCY DEPARTMENT if you experience any of the following: Sudden, severe abdominal pain or nausea/vomiting Severe chest pain, or chest pain that radiates (moves) to your jaw or arm Sudden, severe shortness of breath or difficulty breathing Thank you for allowing us to participate in your care. Pending Studies at Discharge: No Stand-Alone Forms: My [facility] [employer], Smoking Cessation Medications and DC Order Prescriptions: New cefdinir 300 mg capsule 300 mg PO BID 7 Days Qty: 14 0RF cefdinir 300 mg capsule 300 mg PO BID Qty: 1 0RF Rx Instructions: To take 12 hours after initial dose earlier today Continued acetaminophen-codeine 300-30 mg tablet 1 tab PO Q8H PRN (Reason: pain) Qty: 30 0RF hydroxyzine pamoate 25 mg capsule 25 mg PO HS PRN (Reason: Sleep) atorvastatin 10 mg tablet 10 mg PO DAILY Bystolic 20 mg tablet 20 mg PO DAILY Qty: 30 0RF levothyroxine 150 mcg tablet 150 mcg PO DAILY Qty: 90 3RF celecoxib 200 mg capsule 200 mg PO DAILY Rx Instructions: PER PT "RAN OUT A WHILE AGO". amlodipine 10 mg tablet 10 mg PO DAILY duloxetine [Cymbalta] 60 mg capsule,delayed release(DR/EC) 60 mg PO BID Qty: 180 1RF phenazopyridine [Pyridium] 200 mg tablet 200 mg PO TID PRN (Reason: pain) Qty: 6 0RF Rx Instructions: PER PT "DID NOT DOGGER FROM PHARMACY". oxcarbazepine 150 mg tablet 150 mg PO QID PRN (Reason: NEUROPATHY FLARES) Nurtec ODT 75 mg tablet,disintegrating 75 mg PO DIRECTED PRN (Reason: migraine headache) Rx Instructions: once a day prn Discontinued cefdinir 300 mg capsule 300 mg PO BID 7 Days Qty: 14 0RF Rx Instructions: PER PT "DID NOT DOGGER FROM PHARMACY". Discharge Orders: Discharge Order (Routine); Ordered 03/17/24 Ordered By: Maria D Mcnamara Admission Data Admit Date/Time: 03/15/24 15:49 Attending Provider: Zack Ng Admit Provider: Juan C Mckee Primary Care Provider: Radha Toro Other Providers: Juan C Mckee Other Interventions: Discharge Summary Assessment (RN) Last Done: 03/17/24 14:37 Supervising Physician Co-Signing Physician Notes Attending attestation Pt seen and examined in concert with Dr. Mcnamara. In agreement with the documented findings as noted in the resident documentation with any exceptions or additions as noted here. Reports essential resolution of right flank pain at this time without recurrence of fever, chills, nausea. On examination, S1/S2 nl RRR no MCG. CTAB. Abd NT/ND, BS +ve E. coli bacteremia w/ ureteritis - transition to PO abx therapy as noted to complete course with precautions re: worsening symptoms, recurrence. Else see resident documentation as noted. Total attending physician time spent with this patient's care on the day of discharge: 35 minutes. Resident Activity Tracking Resident Involvement: Resident Care Provided Care Provided: Adult [facility]
[2024-03-17] MEDS ORDERED: CEFDINIR 300 MG CAP HOME PACK PO ONE (13:49)
[2024-03-17] MEDS: CEFDINIR 300 MG CAP PO ONE (14:43)
== END 2024-03-17 15:44 | disposition home or self-care (01) | DRG 872 ==
LOC: ED 13:59 → SUATTDRO 15:49 → 3N 15:49